=== PATIENT | male | born 1950 | race Caucasian/White ===

== ENCOUNTER 2023-09-22 10:43 | Outpatient (OUT) | payer MEDICARE, OTHER, SELFPAY ==
[2023-09-22 11:49] LABS: Basophils Percent Auto 0.2 % (0.2-2.0); Eosinophils Absolute Auto 0.1 10^3/uL (0.0-0.7); Eosinophils Percent Auto 1.1 % (0.9-7.0); Hematocrit 33.5 % (42.0-54.0); Hemoglobin 11.2 g/dL (14.0-18.0); Immature Granulocytes Abs Auto 0.02 10^3/uL (0.00-0.03); Immature Granulocytes Pct Auto 0.4 % (0.0-0.5); Lymphocytes Absolute Auto 1.5 10^3/uL (1.2-3.8); Lymphocytes Percent Auto 32.1 % (20.5-60.0); Mean Corpuscular HGB Conc 33.4 g/dL (29.9-35.2); Mean Corpuscular Hemoglobin 36.1 pg (25.9-34.0); Mean Corpuscular Volume 108.1 fL (80.0-94.0); Mean Platelet Volume 9.8 fL (9.5-13.5); Monocytes Absolute Auto 0.3 10^3/uL (0.3-0.8); Monocytes Percent Auto 6.3 % (1.7-12.0); Neutrophils Absolute Auto 2.8 10^3/uL (1.4-6.5); Neutrophils Percent Auto 59.9 % (43.0-75.0); Platelet Count 184 10^3/uL (150-450); Red Cell Distribution Width 14.8 % (11.0-15.0); White Blood Count 4.6 10^3/uL (4.0-11.0)
[2023-09-22 12:12] LABS: INR 1.13; Partial Thromboplastin Time 27.6 sec (22.3-36.2); Prothrombin Time 11.9 sec (9.0-11.6)
[2023-09-22 12:31] LABS: Anion Gap 9.6; BUN Creatinine Ratio 17.6; Calcium 8.8 mg/dL (8.5-10.1); Carbon Dioxide 28.8 mmol/L (21.0-32.0); Chloride 108 mmol/L (98-107); Estimated GFR (African America >60 (>=60); Estimated GFR (Non-African Ame >60 (>=60); Glucose 103 mg/dL (74-106); Potassium 4.4 mmol/L (3.5-5.1); Sodium 142 mmol/L (136-145)
== END 2023-09-22 10:44 | disposition home or self-care (01) ==
PROVIDERS: Visit Provider Otolaryngology
DX: Z01.812 Encounter for preprocedural laboratory examination (principal); H69.91 Unspecified Eustachian tube disorder, right ear
CPT/HCPCS: 80048; 85025; 85610; 85730

== ENCOUNTER 2023-09-29 06:43 | Day surgery (SDC) | payer MEDICARE, OTHER, SELFPAY ==
[2023-09-22 11:39] VITALS: BP 119/61; PULSE 66; RESP 16; TEMP 36.2; O2SAT 97; BMI 25.1
[2023-09-29] VITALS (9 sets, daily range): BP systolic 136–151; BP diastolic 69–84; PULSE 71–89; RESP 12–22; TEMP 36.2–36.4; O2SAT 96–98; BMI 25.0
--- NOTE | 2023-09-29 | OP_ITS ---
OPERATION DATE: 09/29/2023 PRIMARY CARE PHYSICIAN: Dr. De León SURGEON: Linette Chiang M.D. PREOPERATIVE DIAGNOSIS: Right eustachian tube dysfunction. POSTOPERATIVE DIAGNOSIS: Right eustachian tube dysfunction. PROCEDURE: Right myringotomy and tube. ANESTHESIA: General LMA. COMPLICATIONS: None. FINDINGS: Right serous effusion. INDICATIONS: This 73-year-old man presented with right otitis media with effusion, unresponsive to aggressive medical management. PROCEDURE: Patient identified in the holding area and taken back to the OR where he was placed in the supine position. After induction of general anesthesia by LMA, the right ear was approached with the otomicroscope. Cerumen cleaned from the canal using a cerumen curette, and an anterior radial myringotomy was performed. The serous effusion was suctioned from the ear, and a modified Valeriano?s T-tube was folded, inserted through the myringotomy and opened in the middle using microdissection. Patient tolerated procedure well and he was awakened and taken to the recovery room in good condition. LANETTE
--- OUTSIDE RECORDS SUMMARY | 2023-09-29 06:46 | XMS_ITS | CCD ---
Author Name Unknown Address [address] [place] [address] Organization [facility] Care Team Providers Care Securities Attorney Name Role Phone Vin Velasquez Primary Care Provider [phone] Artis Cox Primary Care Provider [phone] Ron CLOTH PRINTER HELPER - TOOL LAPPER HAND, Vin Erick Primary Care Pr ovider Artis Cox MD Primary Care Provider [phone] Ron CLOTH PRINTER HELPER - TOOL LAPPER HAND, Vin Erick Primary Care Pr ovider Ron CLOTH PRINTER HELPER - TOOL LAPPER HAND, Vin Erick Primary Care Pr ovider Ron CLOTH PRINTER HELPER - TOOL LAPPER HAND, Vin Erick Primary Care Pr ovider NARENDRA TATUM Referring Unavailable VELASQUEZ, VIN ERICK Primary Care Unavailabl e NARENDRA TATUM Referring Unavailable VELASQUEZ, VIN ERICK Primary Care Unavailabl e VELASQUEZ, VIN ERICK Primary Care Unavailabl e NARENDRA TATUM Referring Unavailable Paul Cunha MD Primary Care Provider [phone] BONNIE BONILLA Attending Unavailable PAUL CUNHA Referring Unavailable VELASQUEZ VIN ERICK Referring Unavailabl e VELASQUEZ, VIN ERICK Primary Care Unavailabl e FRITZ BUSCH Referring Unavailable VELASQUEZ, VIN ERICK Primary Care Unavailabl e VELASQUEZ, VIN ERICK Primary Care Unavailabl e NARENDRA TATUM Referring Unavailable FRITZ BUSCH Referring Unavailable VELASQUEZ, VIN ERICK Primary Care Unavailabl e TAIWO GUAMAN Referring Unavailable KATHARINE REID Admitting Unavailable KATHARINE REID Attending Unavailable VIN VELASQUEZ Primary Care Unavailabl e VIN VELASQUEZ Primary Care Unavailabl e NARENDRA TATUM Referring Unavailable VIN VELASQUEZ Primary Care Unavailabl e NARENDRA TATUM Referring Unavailable NARENDRA TATUM Referring Unavailable VIN VELASQUEZ Primary Care Unavailabl e RC, NARENDRA Referring Unavailable VIN VELASQUEZ Primary Care Unavailabl e Medications Current Medications Medication Drug Class(es) Dates Sig (Normalized) Sig (Original) amLODIPine 2.5 mg oral tablet (15 sources) Dihydropyridine Calcium Channel Brandi Start: 04-13-2023 take 1 tablet by mouth once daily amLODIPine (NORVASC) 2.5 MG tablet Take 1 tablet by mouth daily 90 tablet 1 04/13/2023 Active Start: 08-18-2022 take 1 tablet by tayo th once daily amLODIPine (NORVASC) 5 MG tablet take 1 tablet by mouth once daily 90 tablet 1 08/18/2022 Active Start: 02-21-2022 take 1 tablet by tayo th once daily amLODIPine (NORVASC) 5 MG tablet take 1 tablet by mouth once daily 90 tablet 1 02/21/2022 Active Start: 08-26-2021 take 1 tablet by tayo th once daily amLODIPine (NORVASC) 5 MG tablet take 1 tablet by mouth once daily 90 tablet 1 08/26/2021 Active Start: 03-04-2021 take 1 tablet by tayo th once daily amLODIPine (NORVASC) 5 MG tablet take 1 tablet by mouth once daily 90 tablet 1 03/04/2021 Active Start: 01-07-2021 take 1 tablet by tayo th once daily amLODIPine (NORVASC) 5 MG tablet take 1 tablet by mouth once daily 90 tablet 0 01/07/2021 Active Start: 07-09-2020 take 1 tablet by tayo th once daily amLODIPine (NORVASC) 5 MG tablet take 1 tablet by mouth once daily 90 tablet 0 07/09/2020 Active Start: 11-11-2019 take 1 tablet by tayo th once daily amLODIPine (NORVASC) 5 MG tablet Take 1 tablet by mouth daily 30 tablet 3 11/11/2019 Active apixaban 5 mg oral tablet (16 sources) Factor Xa Inhibitor Start: 08-17-2023 take 1 tablet by mouth twice daily ELIQUIS 5 MG TABS tablet Indications: Paroxysmal atrial fibrillation (HCC) take 1 tablet by mouth twice a day 180 tablet 3 08/17/2023 Active Start: 08-25-2022 take 1 tablet by tayo th twice daily ELIQUIS 5 MG TABS tablet Indications: Paroxysmal atrial fibrillation (HCC) take 1 tablet by mouth twice a day 180 tablet 3 08/25/2022 Active Start: 08-26-2021 take 1 tablet by tayo th twice daily ELIQUIS 5 MG TABS tablet Indications: Paroxysmal atrial fibrillation (HCC) take 1 tablet by mouth twice a day 180 tablet 3 08/26/2021 Active Start: 08-30-2020 take 1 tablet by tayo th twice daily ELIQUIS 5 MG TABS tablet Indications: Paroxysmal atrial fibrillation (HCC) take 1 tablet by mouth twice a day 180 tablet 3 08/30/2020 Active Start: 09-16-2019 take 1 tablet by tayo th twice daily apixaban (ELIQUIS) 5 MG TABS tablet Indications: Paroxysmal atrial fibrillation (HCC) Take 1 tablet by mouth 2 times daily 180 tablet 3 09/16/2019 Active Start: 04-12-2019 take 1 tablet by tayo th twice daily ELIQUIS 5 MG TABS tablet TAKE 1 TABLET BY MOUTH TWO TIMES DAILY 180 tablet 3 04/12/2019 Active b complex vitamins capsule (2 sources) take 1 capsule by mouth once daily b complex vitamins capsule Take 1 capsule by mouth daily 0 Active dronedarone 400 mg oral tablet (16 sources) Antiarrhythmic Start: 08-18-2023 take 1 tablet by mouth once daily in the morning, then take 1 tablet by mouth once daily in the evening MULTAQ 400 MG TABS Indications: Paroxysmal atrial fibrillation (HCC) take 1 tablet by mouth every morning with breakfast then take 1 tablet by mouth every evening with DINNER 180 tablet 3 08/18/2023 Active Start: 08-27-2022 take 1 tablet by tayo th twice daily in the morning MULTAQ 400 MG TABS Indications: Paroxysmal atrial fibrillation (HCC) take 1 tablet by mouth twice a day EVERY MORNING WITH BREAKFAST and EVERY EVENING WITH DINNER 180 tablet 3 08/27/2022 Active Start: 09-02-2021 take 1 tablet by tayo th twice daily in the morning MULTAQ 400 MG TABS Indications: Paroxysmal atrial fibrillation (HCC) take 1 tablet by mouth twice a day EVERY MORNING WITH BREAKFAST and EVERY EVENING WITH DINNER 180 tablet 3 09/02/2021 Active Start: 09-05-2020 take 1 tablet by tayo th twice daily in the morning MULTAQ 400 MG TABS Indications: Paroxysmal atrial fibrillation (HCC) take 1 tablet by mouth twice a day EVERY MORNING WITH BREAKFAST and EVERY EVENING WITH DINNER 180 tablet 3 09/05/2020 Active Start: 09-16-2019 take 1 tablet by tayo th twice daily at mealtime dronedarone hcl (MULTAQ) 400 MG TABS Indications: Paroxysmal atrial fibrillation (HCC) Take 1 tablet by mouth 2 times daily (with meals) 180 tablet 3 09/16/2019 Active Start: 04-12-2019 take 1 tablet by tayo th twice daily at mealtime MULTAQ 400 MG TABS TAKE 1 TABLET BY MOUTH TWO TIMES DAILY WITH MEALS 180 tablet 3 04/12/2019 Active ferrous fumarate-vitamin c (MARTIN-SEQUELS) 65-25 MG TBCR CR tablet (2 sources) take 1 tablet by mouth once daily at breakfast ferrous fumarate-vitamin c (MARTIN-SEQUELS) 65-25 MG TBCR CR tablet Take 1 tablet by mouth daily (with breakfast) OTC supplement per patient report 0 Active ferrous sulfate 325 mg oral tablet (3 sources) take 1 tablet by mouth once daily at breakfast ferrous sulfate (IRON 325) 325 (65 Fe) MG tablet Take 1 tablet by mouth daily (with breakfast) 0 Active hydrOXYzine hydrochloride 25 mg oral tablet (1 source) Antihistamine Start: 2020 End: 2020 take 1 tablet by mouth once daily as needed for anxiety hydrOXYzine (ATARAX) 25 MG tablet Take 1 tablet by mouth nightly as needed for Anxiety 90 tablet 0 08/31/2020 09/30/2020 Active losartan potassium 100 mg oral tablet (14 sources) Angiotensin 2 Receptor Brandi Start: 2018 End: 2027 take 1 tablet by mouth once daily losartan (COZAAR) 100 MG tablet take 1 tablet by mouth once daily 90 tablet 1 04/16/2023 Active predniSONE 5 mg oral tablet (1 source) Start: 2023 End: 2023 take 4 tablets by mouth twice daily predniSONE (DELTASONE) 5 MG tablet Take 4 tablets by mouth 2 times daily 60 tablet 2 08/31/2023 09/30/2023 Active simvastatin 20 mg oral tablet (16 sources) HMG-CoA Reductase Inhibitor Start: 2023 take 1 tablet by mouth once daily in the evening simvastatin (ZOCOR) 20 MG tablet take 1 tablet by mouth every evening 90 tablet 1 08/17/2023 Active Start: 08-25-2022 take 1 tablet by tayo th once daily in the evening simvastatin (ZOCOR) 20 MG tablet take 1 tablet by mouth every evening 90 tablet 1 08/25/2022 Active Start: 02-25-2022 take 1 tablet by tayo th once daily in the evening simvastatin (ZOCOR) 20 MG tablet take 1 tablet by mouth every evening 90 tablet 1 02/25/2022 Active Start: 08-29-2021 take 1 tablet by tayo th once daily in the evening simvastatin (ZOCOR) 20 MG tablet take 1 tablet by mouth every evening 90 tablet 1 08/29/2021 Active Start: 03-04-2021 take 1 tablet by tayo th once daily in the evening simvastatin (ZOCOR) 20 MG tablet TAKE 1 TABLET BY MOUTH DAILY IN THE EVENING 90 tablet 1 03/04/2021 Active Start: 10-22-2020 take 1 tablet by tayo th once daily in the evening simvastatin (ZOCOR) 20 MG tablet TAKE 1 TABLET BY MOUTH DAILY IN THE EVENING 90 tablet 1 10/22/2020 Active Start: 09-16-2019 take 1 tablet by tayo th once daily in the evening simvastatin (ZOCOR) 20 MG tablet TAKE 1 TABLET BY MOUTH DAILY IN THE EVENING 90 tablet 3 09/16/2019 Active Start: 08-04-2018 take 1 tablet by tayo th once daily in the evening simvastatin (ZOCOR) 20 MG tablet TAKE 1 TABLETBY MOUTH DAILY IN THE EVENING 90 tablet 3 08/04/2018 Active tiotropium 0.018 mg inhalation powder (1 source) Anticholinergic Start: 06-19-2022 take 1 capsule by inhalation once daily tiotropium (SPIRIVA HANDIHALER) 18 MCG inhalation capsule Inhale 1 capsule into the lungs daily 90 capsule 1 06/19/2022 Active ubidecarenone 100 mg / vitamin e 5 unt oral capsule (3 sources) take 1 capsule by mouth once daily coenzyme Q10 100 MG CAPS capsule Take 1 capsule by mouth daily 0 Active Completed/Discontinued Medications Medication Drug Class(es) Dates Sig (Normalized) Sig (Original) ALPRAZolam 0.25 mg oral tablet (1 source) Benzodiazepine Start: 08-20-2018 End: 07-07-2019 take 1 tablet by mouth twice daily ALPRAZolam (XANAX) 0.25 MG tablet Indications: Reactive depression take 1 tablet by mouth twice a day. 60 tablet 5 08/20/2018 07/07/2019 Discontinued (Therapy completed) Problems Active Problems Problem Classification Problem Date Documented Date Episodic/Chronic Cancer of prostate (20 sources) Malignant tumor of prostate; Translations: [Malignant neoplasm of prostate] Onset: 5 08-24-2014 Chronic Cardiac dysrhythmias (20 sources) Sinus bradycardia; Translations: [Premature beats] Onset: 5 Resolved: 1 05-19-2016 Chronic Cardiac dysrhythmias (14 sources) Sinus bradycardia; Translations: [Bradycardia, unspecified] 05-19-2016 Episodic Chronic obstructive pulmonary disease and bronchiectasis (3 sources) Chronic obstructive lung disease; Translations: [Chronic obstructive pulmonary disease, unspecified] Onset: 3 09-15-2022 Chronic Coagulation and hemorrhagic disorders (1 source) Hypercoagulability state; Translations: [Other thrombophilia] Onset: 3 05-01-2023 Chronic Deficiency and other anemia (3 sources) Macrocytic anemia; Translations: [Nutritional anemia, unspecified] Onset: 3 Episodic Deficiency and other anemia (2 sources) Anemia, unspecified; Translations: [Anemia, unspecified] Onset: 3 Episodic Diseases of white blood cells (13 sources) Lymphocytosis; Translations: [Lymphocytosis (symptomatic)] Onset: 3 Chronic Disorders of lipid metabolism (20 sources) Hyperlipidemia; Translations: [Dyslipidemia] Onset: 5 Resolved: 0 10-12-2019 Chronic Esophageal disorders (16 sources) Gastroesophageal reflux disease; Translations: [Gastro-esophageal reflux disease without esophagitis] Onset: 5 08-24-2014 Chronic Essential hypertension (20 sources) Benign essential hypertension; Translations: [Essential hypertension] Onset: 5 08-24-2014 Chronic Gastritis and duodenitis (13 sources) Gastritis; Translations: [Unspecified chronic gastritis without bleeding] 03-02-2018 Chronic Gastritis and duodenitis (3 sources) Gastritis; Translations: [Antral gastritis] 03-02-2018 Episodic Genitourinary symptoms and ill-defined conditions (3 sources) Male urinary stress incontinence; Translations: [Stress incontinence (female) (male)] Onset: 3 09-25-2022 Chronic Heart valve disorders (3 sources) Nonrheumatic aortic (valve) insufficiency; Translations: [Nonrheumatic aortic (valve) insufficiency] Onset: 4 Chronic Leukemias (4 sources) Adult T-cell leukemia/lymphoma; 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] Onset: 3 08-31-2023 Chronic Mood disorders (16 sources) Major depression single episode, in partial remission; Translations: [Major depressive disorder, single episode, in partial remission] Onset: 5 10-08-2018 Chronic Non-Hodgkin`s lymphoma (5 sources) Non-Hodgkin's lymphoma (clinical); Translations: [Other specified types of non-Hodgkin lymphoma, unspecified site] Onset: 3 Chronic Other aftercare (3 sources) Other termite control service representative (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) drug therapy; Translations: [Other custodial (current) drug therapy] Onset: 4 Episodic Other ear and sense organ disorders (1 source) Mixed conductive AND sensorineural hearing loss; Translations: [Mixed conductive and sensorineural hearing loss, unilateral, right ear with restricted hearing on the contralateral side] 09-02-2023 Chronic Other hematologic conditions (1 source) Other specified diseases of blood and blood-forming organs; Translations: [Other specified diseases of blood and blood-forming organs] Onset: 4 Chronic Other screening for suspected conditions (not mental disorders or infectious disease) (7 sources) Blood chemistry abnormal; Translations: [Patient encounter status] Onset: 4 Episodic Otitis media and related conditions (1 source) Chronic serous otitis media of right ear; Translations: [Chronic serous otitis media, right ear] 09-02-2023 Chronic Unclassified (1 source) Patient encounter status; Translations: [Encounter for screening for malignant neoplasm of prostate] Unclassified (2 sources) pre admission testing; Translations: [pre admission testing] Onset: Past or Other Problems Problem Classification Problem Date Documented Da te Episodic/Chronic Anxiety disorders (16 sources) Acute stress disorder; Translations: [Acute stress reaction] Onset: 08-24-2014 Resolved: 08-31-2020 08-31-2020 Chronic Deficiency and other anemia (1 source) Microcytic anemia; Translations: [Iron deficiency anemia, unspecified] Onset: 02-16-2023 02-16-2023 Episodic Deficiency and other anemia (2 sources) Nutritional anemia, unspecified; Translations: [Nutritional anemia, unspecified] Onset: 05-18-2023 Episodic Deficiency and other anemia (1 source) Iron deficiency anemia, unspecified; Translations: [Iron deficiency anemia, unspecified] Onset: 02-16-2023 Episodic Malaise and fatigue (1 source) Neoplastic (malignant) related fatigue; Translations: [Neoplastic (malignant) related fatigue] Onset: 05-04-2023 Episodic Nonspecific chest pain (16 sources) Chest pain; Translations: [Chest pain, unspecified] Resolved: 08-31-2020 08-31-2020 Episodic Other gastrointestinal disorders (16 sources) Occult blood in stools; Translations: [Other fecal abnormalities] Onset: 02-17-2018 Resolved: 08-31-2020 08-31-2020 Episodic Other male genital disorders (3 sources) Phimosis; Translations: [Phimosis] Onset: 09-25-2022 09-25-2022 Episodic Other upper respiratory disease (1 source) Bleeding from nose Episodic Results Test Name Value Interpretation Reference Range Facility PSA, [facility] 09-24-2023 Prostatic Spec. Ag <0.03 Normal 0.00-4.00 [facility] Comment on above: Result Comment: The Mac ECLIA assay is used. Results obtained with different assay methods cannot be used interchangeably. Performed By: #### U CHEY, RADHA #### [facility] [address] [place] [address] White [place] Buffer: Tomy Steven MD CBC with Diffon 09-23-2023 Abs. Basophil <0.03 Normal 0.00-0.[address] [facility] Comment on above: Performed By: #### U AXKAYLAICAO #### [facility] [address] [place] [address] [place] [address] [place] Buffer: Tomy Steven MD Abs.Imm.Granulocyte <0.03 Normal 0.00-0.30 [facility] Comment on above: Performed By: #### U AXKAYLAICAO #### [address] [place] [address] [place] Buffer: Tomy Steven MD Abs.Neutrophil (Seg) 1.80 k/uL Normal 1.50-8.10 [facility] Comment on above: Performed By: #### U AXHEBERTO #### [address] [place] [id number] [place] Buffer: Tomy Steven MD Basophils/100 WBC (Bld) 0 % Normal 0-2 [facility] Comment on above: Performed By: #### U HEBERT GUERRIERO #### [address] [place] [address] [place] Buffer: Tomy Steven MD Eosinophils (Bld) [#/Vol] 0.05 10*3/uL Normal 0.00-0.44 [facility] Comment on above: Performed By: #### U HEBERT GUERRIERO #### [address] [place] [address] [place] Buffer: Tomy Steven MD Eosinophils/100 WBC (Bld) 1 % Normal 1-4 [facility] Comment on above: Performed By: #### U AXKAYLAICAO #### [address] [place] [id number] [place] Buffer: Tomy Steven MD Erythrocyte distribution width (RBC) [Ratio] 14.6 % High 11.8-14.4 [facility] Comment on above: Performed By: #### U AX, UMICAO #### [facility] [address] [place], [place] [id number] [place] Buffer: Tomy Steven MD Hematocrit (Bld) [Volume fraction] 34.1 % Low 40.7-50.3 [facility] Comment on above: Performed By: #### U AX, UMICAO #### [facility] [address] [place], [facility] [place] Buffer: Tomy Steven MD Hemoglobin (Bld) [Mass/Vol] 11.5 g/dL Low 13.0-17.0 [facility] Comment on above: Performed By: #### U AX, UMICAO #### [address] [place], [place] [id number] [place] Buffer: Tomy Steven MD Immature granulocytes/100 WBC (Bld) 0 % Normal 0 [facility] Comment on above: Performed By: #### U AX, UMICAO #### [address] [place], [place] [id number] [place] Buffer: Tomy Steven MD Lymphocytes (Bld) [#/Vol] 1.54 10*3/uL Normal 1.10-3.70 [facility] Comment on above: Performed By: #### U AX, UMICAO #### [address] [place], [facility] [place] Buffer: Tomy Steven MD Lymphocytes/100 WBC (Bld) 42 % Normal 24-43 [facility] Comment on above: Performed By: #### U AX, UMICAO #### [facility] [address] [place], [place] [id number] [place] Buffer: Tomy Steven MD MCH (RBC) [Entitic mass] 36.4 pg High 25.2-33.5 [facility] Comment on above: Performed By: #### U AX, UMICAO #### [facility] [address] [place], [place] [id number] [place] Buffer: Tomy Steven MD MCHC (RBC) [Mass/Vol] 33.7 g/dL Normal 28.4-34.8 [facility] Comment on above: Performed By: #### U AX, UMICAO #### [facility] [address] [place], [facility] [place] Buffer: Tomy Steven MD MCV (RBC) [Entitic vol] 107.9 fL High 82.6-102.9 [facility] Comment on above: Performed By: #### U AX, UMICAO #### [address] [place], [facility] [place] Buffer: Tomy Steven MD Monocytes (Bld) [#/Vol] 0.26 10*3/uL Normal 0.10-1.20 [facility] Comment on above: Performed By: #### U AX, UMICAO #### [address] [place], [facility] [place] Buffer: Tomy Steven MD Monocytes/100 WBC (Bld) 7 % Normal 3-12 [facility] Comment on above: Performed By: #### U AX, UMICAO #### [address] [place], [facility] [place] Buffer: Tomy Steven MD Neutrophil (Seg) 50 % Normal 36-65 [facility] Comment on above: Performed By: #### U AX, UMICAO #### [facility] [address] [place], [facility] [place] Buffer: Tomy Steven MD NRBC Automated 0.0 per 100 WBC Normal 0.0 [facility] Comment on above: Performed By: #### U AX, UMICAO #### [facility] [address] [place], [facility] [place] Buffer: Tomy Steven MD Platelet mean volume (Bld) [Entitic vol] 9.7 fL Normal 8.1-13.5 [facility] Comment on above: Performed By: #### U AX, UMICAO #### [facility] [address] [place] [address] [place] Buffer: Tomy Steven MD Platelets (Bld) [#/Vol] 197 10*3/uL Normal 138-453 [facility] Comment on above: Performed By: #### U AX, UMICAO #### [facility] [address] [place] [address] [place] Kid Buffer: Tomy Steven MD RBC (Bld) [#/Vol] 3.16 10*6/uL Low 4.21-5.77 [facility] Comment on above: Performed By: #### U AX, UMICAO #### [facility] [address] [place], [place] [id number] [place] Buffer: Tomy Steven MD WBC (Bld) [#/Vol] 3.7 10*3/uL Normal 3.5-11.3 [facility] Comment on above: Performed By: #### U AX, UMICAO #### [address] [place], [place] [id number] [place] Buffer: Tomy Steven MD Comp Metabolic Profon 2023 Albumin [Mass/Vol] 3.9 g/dL Normal 3.5-5.2 [facility] Comment on above: Performed By: #### U AX, UMICAO #### [facility] [address] [place] [address] [place] Buffer: Tomy Steven MD Albumin/Glob Ratio 1.6 Normal 1.0-2.5 [facility] Comment on above: Performed By: #### U AX, UMICAO #### [facility] [address] [place], [place] [id number] [place] Buffer: Tomy Steven MD Alkaline Phos 63 U/L Normal 40-[address] [facility] Comment on above: Performed By: #### U AX, UMICAO #### [facility] [address] [place], [place] [id number] [place] Buffer: Tomy Steven MD ALT [Catalytic activity/Vol] 61 U/L High 5-41 [facility] Comment on above: Performed By: #### U AX, UMICAO #### [facility] [address] [place], [place] [id number] [place] Buffer: Tomy Steven MD Anion gap [Moles/Vol] 8 mmol/L Low 9-17 [facility] Comment on above: Performed By: #### U AX, UMICAO #### [facility] [address] [place], [place] [id number] [place] Buffer: Tomy Steven MD AST [Catalytic activity/Vol] 31 U/L Normal <40 [facility] Comment on above: Performed By: #### U AXKAYLAICAO #### [facility] [address] [place], [place] [id number] [place] Buffer: Tomy Steven MD Bilirubin [Mass/Vol] 0.7 mg/dL Normal 0.3-1.2 [facility] Comment on above: Performed By: #### U AX, UMICAO #### [facility] [address] [place], [place] [id number] [place] Buffer: Tomy Steven MD BUN/CRE Ratio 19 Normal 9-[address] [facility] Comment on above: Performed By: #### U AX, UMICAO #### [facility] [address] [place], [place] [id number] [place] Kid Buffer: Tomy Steven MD Calcium [Mass/Vol] 9.4 mg/dL Normal 8.6-10.4 [facility] Comment on above: Performed By: #### U AX, UMICAO #### [facility] [address] [place], [place] [id number] [place] Buffer: Tomy Steven MD Chloride [Moles/Vol] 106 mmol/L Normal 98-107 [facility] Comment on above: Performed By: #### U AX, UMICAO #### [facility] [address] [place], [place] [id number] [place] Buffer: Tomy Steven MD CO2 [Moles/Vol] 27 mmol/L Normal 20-31 [facility] Comment on above: Performed By: #### U AX, UMICAO #### [facility] [address] [place], [place] [id number] [place] Buffer: Tomy Steven MD Creatinine [Mass/Vol] 0.7 mg/dL Normal 0.7-1.2 [facility] Comment on above: Performed By: #### U AX, UMICAO #### [facility] [address] [place], [place] [id number] [place] Buffer: Tomy Steven MD GFR/1.73 sq M.predicted among non-blacks MDRD (S/P/Bld) [Vol rate/Area] mL/min/{1.73_m2} Normal >60 [facility] Comment on above: Result Comment: These results are not intended for use in patients <18 years of age. eGFR results are calculated without a race factor using the 2020 CKD-EPI equation. Careful clinical correlation is recommended, particularly when comparing to results calculated using previous equations. The CKD-EPI equation is less accurate in patients with extremes of muscle mass, extra-renal metabolism of creatine, excessive creatine ingestion, or following therapy that affects renal tubular secretion. Performed By: #### U AX, UMICAO #### [facility] [address] [place] [address] [place] Buffer: Tomy Steven MD Glucose [Mass/Vol] 135 mg/dL High 70-99 [facility] Comment on above: Performed By: #### U AX, UMICAO #### [facility] [address] [place] [address] [place], [place] [id number] [place] Buffer: Tomy Steven MD Potassium [Moles/Vol] 4.1 mmol/L Normal 3.7-5.3 [facility] Comment on above: Performed By: #### U AX, UMICAO #### [facility] [address] [place] [address] Dr[place], [place] [id number] [place] Buffer: Tomy Steven MD Protein [Mass/Vol] 6.4 g/dL Normal 6.4-8.3 [facility] Comment on above: Performed By: #### U AX, UMICAO #### [address] [place], [place] [id number] [place] Buffer: Tomy Steven MD Sodium [Moles/Vol] 141 mmol/L Normal 135-144 [facility] Comment on above: Performed By: #### U AX, UMICAO #### [facility] [address] [place] [address] Dr[place], [place] [id number] [place] Buffer: Tomy Steven MD Urea nitrogen [Mass/Vol] 13 mg/dL Normal 8-23 [facility] Comment on above: Performed By: #### U AX, UMICAO #### [address] [place], [place] [id number] [place] Buffer: Tomy Steven MD CBC with Diffon 09-11-2023 Abs. Basophil <0.03 Normal 0.00-0.[address] [facility] Comment on above: Performed By: #### U AX, UMICAO #### [facility] [address] [place] [address] [place] [address] [place] Buffer: Tomy Steven MD Abs. Eosinophil <0.03 Normal 0.00-0.44 [facility] Comment on above: Performed By: #### U AX, UMICAO #### [facility] [address] [place] [address] [place], [place] [id number] [place] Kid Buffer: Tomy Steven MD Abs.Imm.Granulocyte 0.03 k/uL Normal 0.00-0.30 [facility] Comment on above: Performed By: #### U AX, UMICAO #### [address] [place], [place] [id number] [place] Kid Buffer: Tomy Steven MD Abs.Neutrophil (Seg) 2.90 k/uL Normal 1.50-8.10 [facility] Comment on above: Performed By: #### U AX, UMICAO #### [address] [place] [id number] [place] Kid Buffer: Tomy Steven MD Basophils/100 WBC (Bld) 0 % Normal 0-2 [facility] Comment on above: Performed By: #### U AX, KAYLAICAO #### [address] [place], [facility]83 [place] Kid Buffer: Tomy Steven MD Eosinophils/100 WBC (Bld) 0 % Low 1-4 [facility] Comment on above: Performed By: #### U AX, KAYLAICAO #### [address] [place], [facility]83 [place] Kid Buffer: Tomy Steven MD Erythrocyte distribution width (RBC) [Ratio] 15.6 % High 11.8-14.4 [facility] Comment on above: Performed By: #### U AX, UMICAO #### [address] [place], [place] [id number] [place] Kid Buffer: Tomy Steven MD Hematocrit (Bld) [Volume fraction] 37.4 % Low 40.7-50.3 [facility] Comment on above: Performed By: #### U AX, UMICAO #### [address] [place], [facility]83 [place] Kid Buffer: Tomy Steven MD Hemoglobin (Bld) [Mass/Vol] 12.5 g/dL Low 13.0-17.0 [facility] Comment on above: Performed By: #### U AX, HEBERTO #### [facility] [address] [place], [place] [id number] [place] Buffer: Tomy Steven MD Immature granulocytes/100 WBC (Bld) 1 % High 0 [facility] Comment on above: Performed By: #### U AX, KAYLAICAO #### [facility] [address] [place] [address] [place] Kid Buffer: Tomy Steven MD Lymphocytes (Bld) [#/Vol] 1.54 10*3/uL Normal 1.10-3.70 [facility] Comment on above: Performed By: #### U AXHEBERTO #### [address] [place], [place] 3000083 [place] Kid Buffer: Tomy Steven MD Lymphocytes/100 WBC (Bld) 32 % Normal 24-43 [facility] Comment on above: Performed By: #### U RADHA GUERRIER #### [address] [place], [place] [phone] [place] Kid Buffer: Tomy Steven MD MCH (RBC) [Entitic mass] 36.2 pg High 25.2-33.5 [facility] Comment on above: Performed By: #### U AXHEBERTO #### [address] [place], [place] [id number] [place] Kid Buffer: Tomy Steven MD MCHC (RBC) [Mass/Vol] 33.4 g/dL Normal 28.4-34.8 [facility] Comment on above: Performed By: #### U AX, KAYLAICAO #### [address] [place] [address] White Kid Buffer: Tomy Steven MD MCV (RBC) [Entitic vol] 108.4 fL High 82.6-102.9 [facility] Comment on above: Performed By: #### U AX, UMICAO #### [facility] [address] [place], [place] [id number] [place] Kid Buffer: Tomy Steven MD Monocytes (Bld) [#/Vol] 0.40 10*3/uL Normal 0.10-1.20 [facility] Comment on above: Performed By: #### U AX, UMICAO #### [facility] [address] [place], [place] 0329583 White Kid Buffer: Tomy Steven MD Monocytes/100 WBC (Bld) 8 % Normal 3-12 [facility] Comment on above: Performed By: #### U AX, KAYLAICAO #### [address] [place], [facility]83 White Kid Buffer: Tomy Steven MD Neutrophil (Seg) 59 % Normal 36-65 [facility] Comment on above: Performed By: #### U AX, KAYLAICAO #### [address] [place], [place] [address] White Kid Buffer: Tomy Steven MD NRBC Automated 0.0 per 100 WBC Normal 0.0 [facility] Comment on above: Performed By: #### U AX, KAYLAICAO #### [address] [place], [facility]83 [place] Kid Buffer: Tomy Steven MD Platelet mean volume (Bld) [Entitic vol] 10.3 fL Normal 8.1-13.5 [facility] Comment on above: Performed By: #### U AX, UMICAO #### [address] [place] [address] [place] Kid Buffer: Tomy Steven MD Platelets (Bld) [#/Vol] 251 10*3/uL Normal 138-453 [facility] Comment on above: Performed By: #### U AX, UMICAO #### [facility] [address] [place], [place] [id number] [place] Kid Buffer: Tomy Steven MD RBC (Bld) [#/Vol] 3.45 10*6/uL Low 4.21-5.77 [facility] Comment on above: Performed By: #### U AX, UMICAO #### [facility] [address] [place], [place] [id number] [place] Kid Buffer: Tomy Steven MD WBC (Bld) [#/Vol] 4.9 10*3/uL Normal 3.5-11.3 [facility] Comment on above: Performed By: #### U AX, UMICAO #### [facility] [address] [place], [place] [id number] [place] Kid Buffer: Tomy Steven MD Comp Metabolic Profon 2023 Albumin [Mass/Vol] 4.2 g/dL Normal 3.5-5.2 [facility] Comment on above: Performed By: #### U AXKAYLAICAO #### [facility] [address] [place], [place] [id number] [place] Kid Buffer: Tomy Steven MD Albumin/Glob Ratio 1.8 Normal 1.0-2.5 [facility] Comment on above: Performed By: #### U AX UMICAO #### [facility] [address] [place], [place] [phone] [place] Kid Buffer: Tomy Steven MD Alkaline Phos 56 U/L Normal 40-[address] [facility] Comment on above: Performed By: #### U AX, UMICAO #### [facility] [address] [place], [place] 7592983 [place] Kid Buffer: Tomy Steven MD ALT [Catalytic activity/Vol] 47 U/L High 5-41 [facility] Comment on above: Performed By: #### U AX, UMICAO #### [facility] [address] [place], [place] 0739983 [place] Buffer: Tomy Steven MD Anion gap [Moles/Vol] 12 mmol/L Normal 9-17 [facility] Comment on above: Performed By: #### U AX, UMICAO #### [facility] [address] [place], [place] 2462383 [place] Kid Buffer: Tomy Steven MD AST [Catalytic activity/Vol] 26 U/L Normal <40 [facility] Comment on above: Performed By: #### U AX, UMICAO #### [facility] [address] [place], [place] 6563483 [place] Kid Buffer: Tomy Steven MD Bilirubin [Mass/Vol] 0.9 mg/dL Normal 0.3-1.2 [facility] Comment on above: Performed By: #### U AX, UMICAO #### [facility] [address] [place], [place] 1790683 [place] Kid Buffer: Tomy Steven MD BUN/CRE Ratio 24 High 9-[address] [facility] Comment on above: Performed By: #### U AX, UMICAO #### [facility] [address] [place], [place] [id number] [place] Kid Buffer: Tomy Steven MD Calcium [Mass/Vol] 9.2 mg/dL Normal 8.6-10.4 [facility] Comment on above: Performed By: #### U AX, UMICAO #### [facility] [address] [place], [place] [phone] [place] Kid Buffer: Tomy Steven MD Chloride [Moles/Vol] 104 mmol/L Normal 98-107 [facility] Comment on above: Performed By: #### U AX, UMICAO #### [facility] [address] [place], [place] [phone] [place] Kid Buffer: Tomy Steven MD CO2 [Moles/Vol] 24 mmol/L Normal 20-31 [facility] Comment on above: Performed By: #### U AX, UMICAO #### [facility] [address] [place] [address] [place] Kid Buffer: Tomy Steven MD Creatinine [Mass/Vol] 0.7 mg/dL Normal 0.7-1.2 [facility] Comment on above: Performed By: #### U AX, UMICAO #### [facility] [address] [place] [address] [place] Kid Buffer: Tomy Steven MD GFR/1.73 sq M.predicted among non-blacks MDRD (S/P/Bld) [Vol rate/Area] mL/min/{1.73_m2} Normal >60 [facility] Comment on above: Result Comment: These results are not intended for use in patients <18 years of age. eGFR results are calculated without a race factor using the 2020 CKD-EPI equation. Careful clinical correlation is recommended, particularly when comparing to results calculated using previous equations. The CKD-EPI equation is less accurate in patients with extremes of muscle mass, extra-renal metabolism of creatine, excessive creatine ingestion, or following therapy that affects renal tubular secretion. Performed By: #### U AX, UMICAO #### [facility] [address] [place] [address] [place] Kid Buffer: Tomy Steven MD Glucose [Mass/Vol] 208 mg/dL High 70-99 [facility] Comment on above: Performed By: #### U AX, UMICAO #### [facility] [address] [place] [address] [place] Kid Buffer: Tomy Steven MD Potassium [Moles/Vol] 3.9 mmol/L Normal 3.7-5.3 [facility] Comment on above: Performed By: #### U AX, UMICAO #### [facility] [address] [place] [address] [place] Kid Buffer: Tomy Steven MD Protein [Mass/Vol] 6.5 g/dL Normal 6.4-8.3 [facility] Comment on above: Performed By: #### U AX, KAYLAICAO #### [facility] [address] [place] [address] [place] Kid Buffer: Tomy Steven MD Sodium [Moles/Vol] 140 mmol/L Normal 135-144 [facility] Comment on above: Performed By: #### U AX, KAYLAICAO #### [facility] [address] [place] [address] [place] Kid Buffer: Tomy Steven MD Urea nitrogen [Mass/Vol] 17 mg/dL Normal 8-23 [facility] Comment on above: Performed By: #### U AX, KAYLAICAO #### [facility] [address] [place] [address] [place] Kid Buffer: Tomy Steven MD Auditory function testson Right Ear: Mild conductive hearing loss at 1K Hz. Moderate to profound mixed hearing loss above 2K Hz Left Ear: Mild sloping to severe sensorineural hearing loss above 3K Hz [facility] Differential[facility] 08-31-2023 Basophils (Bld) [#/Vol] 0.00 10*3/uL [facility] Basophils/100 WBC (Bld) 0 % 0 - 2 % [facility] Eosinophils (Bld) [#/Vol] 0.12 10*3/uL [facility] Eosinophils/100 WBC (Bld) 3 % 1 - 4 % [facility] Erythrocyte distribution width (RBC) [Ratio] 15.4 % High 11.8 - 14.4 % [facility] Hematocrit (Bld) [Volume fraction] 33.3 % Low 40.7 - 50.3 % [facility] Hemoglobin (Bld) [Mass/Vol] 11.2 g/dL Low 13.0 - 17.0 g/dL [facility] Immature granulocytes (Bld) [#/Vol] 0.00 10*3/uL [facility] Immature granulocytes/100 WBC (Bld) 0 % [address] [facility] Interpretation and review of laboratory results Abnormal [facility] Lymphocytes/100 WBC (Bld) 76 % High 24 - 43 % [facility] Lymphocytes/100 WBC (Bld) 3.04 % [facility] MCH (RBC) [Entitic mass] 36.5 pg High 25.2 - 33.[address] [facility] MCHC (RBC) [Mass/Vol] 33.6 g/dL 28.4 - 34.8 g/dL [facility] MCV (RBC) [Entitic vol] 108.5 fL High 82.6 - 102.[address] [facility] Monocytes/100 WBC (Bld) 8 % 3 - 12 % [facility] Monocytes/100 WBC (Bld) 0.32 % [facility] Morphology Porfirio (Bld) [Interp] Normal [facility] Neutrophils/100 WBC (Bld) 13 % Low 36 - 65 % [facility] Nucleated RBC/100 WBC (Bld) [Ratio] 0.0 % 0.0 per [address] [facility] Platelet mean volume (Bld) [Entitic vol] 10.1 fL 8.1 - 13.[address] [facility] Platelets (Bld) [#/Vol] 198 10*3/uL [facility] RBC (Bld) [#/Vol] 3.07 10*6/uL Low 4.21 - 5.7 7 m/uL [facility] Segmented neutrophils/100 WBC (Bld) 0.52 % Low [facility] WBC other (Bld) [#/Vol] 4.0 [facility] CBC with Diffon 08-31-2023 Abs. Basophil 0.00 k/uL Normal 0.0-0.[address] [facility] Comment on above: Performed By: #### C P, CDP #### [facility] [address] [place] [address] [place] Buffer: Tomy Steven MD Abs.Imm.Granulocyte 0.00 k/uL Normal 0.00-0.30 [facility] Comment on above: Performed By: #### C P, CDP #### [address] [place], [place] [address] [place] Kid Buffer: Tomy Steven MD Abs.Neutrophil (Seg) 0.52 k/uL Low 1.50-8.10 [facility] Comment on above: Performed By: #### C P, CDP #### [address] [place], [facility]83 [place] Kid Buffer: Tomy Steven MD Basophils/100 WBC (Bld) 0 % Normal 0-2 [facility] Comment on above: Performed By: #### C P, CDP #### [address] [place] [address] [place] Kid Buffer: Tomy Steven MD Eosinophils (Bld) [#/Vol] 0.12 10*3/uL Normal 0.00-0.44 [facility] Comment on above: Performed By: #### C P, CDP #### [address] [place], [place] [address] [place] Kid Buffer: Tomy Steven MD Eosinophils/100 WBC (Bld) 3 % Normal 1-4 [facility] Comment on above: Performed By: #### C P, CDP #### [address] [place], [place] [address] [place] Kid Buffer: Tomy Steven MD Immature granulocytes/100 WBC (Bld) 0 % Normal 0 [facility] Comment on above: Performed By: #### C P, CDP #### [address] [place], [facility]83 [place] Kid Buffer: Tomy Steven MD Lymphocytes (Bld) [#/Vol] 3.04 10*3/uL Normal 1.10-3.70 [facility] Comment on above: Performed By: #### C P, CDP #### [facility] [address] [place], [place] [id number] [place] Buffer: Tomy Steven MD Lymphocytes/100 WBC (Bld) 76 % High 24-43 [facility] Comment on above: Performed By: #### C P, CDP #### [facility] [address] [place], [place] [id number] [place] Kid Buffer: Tomy Steven MD Monocytes (Bld) [#/Vol] 0.32 10*3/uL Normal 0.10-1.20 [facility] Comment on above: Performed By: #### C P, CDP #### [address] [place], [place] [id number] [place] Kid Buffer: Tomy Steven MD Monocytes/100 WBC (Bld) 8 % Normal 3-12 [facility] Comment on above: Performed By: #### C P, CDP #### [address] [place], [place] [id number] [place] Kid Buffer: Tomy Steven MD Morphology Porfirio (Bld) [Interp] Normal Normal [facility] Comment on above: Performed By: #### C P, CDP #### [address] [place], [place] [id number] [place] Kid Buffer: Tomy Steven MD Neutrophil (Seg) 13 % Low 36-65 [facility] Comment on above: Performed By: #### C P, CDP #### [facility] [address] [place], [place] [id number] [place] Kid Buffer: Tomy Steven MD Erythrocyte distribution width (RBC) [Ratio] 15.4 % High 11.8-14.4 [facility] Comment on above: Performed By: #### C P, CDP #### [facility] [address] [place], [place] [address]84[address]3 [place] Kid Buffer: Tomy Steven MD Hematocrit (Bld) [Volume fraction] 33.3 % Low 40.7-50.3 [facility] Comment on above: Performed By: #### C P, CDP #### [address] [place] [address] [place] Kid Buffer: Tomy Steven MD Hemoglobin (Bld) [Mass/Vol] 11.2 g/dL Low 13.0-17.0 [facility] Comment on above: Performed By: #### C P, CDP #### [address] [place] [address] [place] Kid Buffer: Tomy Steven MD MCH (RBC) [Entitic mass] 36.5 pg High 25.2-33.5 [facility] Comment on above: Performed By: #### C P, CDP #### [address] [place] [address] [place] Kid Buffer: Tomy Steven MD MCHC (RBC) [Mass/Vol] 33.6 g/dL Normal 28.4-34.8 [facility] Comment on above: Performed By: #### C P, CDP #### [address] [place] [address] [place] Kid Buffer: Tomy Steven MD MCV (RBC) [Entitic vol] 108.5 fL High 82.6-102.9 [facility] Comment on above: Performed By: #### C P, CDP #### [address] [place] [address] [place] Kid Buffer: Tomy Steven MD NRBC Automated 0.0 per 100 WBC Normal 0.0 [facility] Comment on above: Performed By: #### C P, CDP #### [address] [place] [address] [place] Buffer: Tomy Steven MD Platelet mean volume (Bld) [Entitic vol] 10.1 fL Normal 8.1-13.5 [facility] Comment on above: Performed By: #### C P, CDP #### [facility] [address] [place] [address] [place] Kid Buffer: Tomy Steven MD Platelets (Bld) [#/Vol] 198 10*3/uL Normal 138-453 [facility] Comment on above: Performed By: #### C P, CDP #### [facility] [address] [place] [address] [place] Kid Buffer: Tomy Steven MD RBC (Bld) [#/Vol] 3.07 10*6/uL Low 4.21-5.77 [facility] Comment on above: Performed By: #### C P, CDP #### [facility] [address] [place] [address] [place] Kid Buffer: Tomy Steven MD WBC (Bld) [#/Vol] 4.0 10*3/uL Normal 3.5-11.3 [facility] Comment on above: Performed By: #### C P, CDP #### [address] [place] [address] [place] Kid Buffer: Tomy Steven MD Comp Metabolic Profon 2023 Albumin [Mass/Vol] 4.2 g/dL Normal 3.5-5.2 [facility] Comment on above: Performed By: #### C P, CDP #### [facility] [address] [place], [place] [address]46[address]83 [place] Kid Buffer: Tomy Steven MD Albumin/Glob Ratio 1.8 Normal 1.0-2.5 [facility] Comment on above: Performed By: #### C P, CDP #### [facility] [address] [place] [address] [place] Kid Buffer: Tomy Steven MD Alkaline Phos 67 U/L Normal 40-[address] [facility] Comment on above: Performed By: #### C P, CDP #### [facility] [address] [place], [place] [id number] [place] Kid Buffer: Tomy Steven MD ALT [Catalytic activity/Vol] 31 U/L Normal 5-41 [facility] Comment on above: Performed By: #### C P, CDP #### [facility] [address] [place], [place] [id number] [place] Kid Buffer: Tomy Steven MD Anion gap [Moles/Vol] 9 mmol/L Normal 9-17 [facility] Comment on above: Performed By: #### C P, CDP #### [facility] [address] [place], [place] [id number] [place] Kid Buffer: Tomy Steven MD AST [Catalytic activity/Vol] 26 U/L Normal <40 [facility] Comment on above: Performed By: #### C P, CDP #### [facility] [address] [place], [place] 060[address]83 [place] Kid Buffer: Tomy Steven MD Bilirubin [Mass/Vol] 0.6 mg/dL Normal 0.3-1.2 [facility] Comment on above: Performed By: #### C P, CDP #### [facility] [address] [place], [place] [phone] [place] Kid Buffer: Tomy Steven MD BUN/CRE Ratio 11 Normal 9-[address] [facility] Comment on above: Performed By: #### C P, CDP #### [facility] [address] [place], [place] [phone] [place] Kid Buffer: Tomy Steven MD Calcium [Mass/Vol] 9.2 mg/dL Normal 8.6-10.4 [facility] Comment on above: Performed By: #### C P, CDP #### [facility] [address] [place], [place] [id number] [place] Buffer: Tomy Steven MD Chloride [Moles/Vol] 106 mmol/L Normal 98-107 [facility] Comment on above: Performed By: #### C P, CDP #### [facility] [address] [place] [address] [place] Kid Buffer: Tomy Steven MD CO2 [Moles/Vol] 27 mmol/L Normal 20-31 [facility] Comment on above: Performed By: #### C P, CDP #### [facility] [address] [place] [address] [place] Kid Buffer: Tomy Steven MD Creatinine [Mass/Vol] 0.7 mg/dL Normal 0.7-1.2 [facility] Comment on above: Performed By: #### C P, CDP #### [facility] [address] [place] [address] [place] Kid Buffer: Tomy Steven MD GFR/1.73 sq M.predicted among non-blacks MDRD (S/P/Bld) [Vol rate/Area] mL/min/{1.73_m2} Normal >60 [facility] Comment on above: Result Comment: These results are not intended for use in patients <18 years of age. eGFR results are calculated without a race factor using the 2020 CKD-EPI equation. Careful clinical correlation is recommended, particularly when comparing to results calculated using previous equations. The CKD-EPI equation is less accurate in patients with extremes of muscle mass, extra-renal metabolism of creatine, excessive creatine ingestion, or following therapy that affects renal tubular secretion. Performed By: #### C P, CDP #### [facility] [address] [place] [address] [place] Buffer: Tomy Steven MD Glucose [Mass/Vol] 135 mg/dL High 70-99 [facility] Comment on above: Performed By: #### C P, CDP #### [facility] [address] [place] [address] [place] Buffer: Tomy Steven MD Potassium [Moles/Vol] 4.2 mmol/L Normal 3.7-5.3 [facility] Comment on above: Performed By: #### C P, CDP #### [facility] [address] [place] [address] [place] Kid Buffer: Tomy Steven MD Protein [Mass/Vol] 6.5 g/dL Normal 6.4-8.3 [facility] Comment on above: Performed By: #### C P, CDP #### [facility] [address] [place], [place] [id number] [place] Kid Buffer: Tomy Steven MD Sodium [Moles/Vol] 142 mmol/L Normal 135-144 [facility] Comment on above: Performed By: #### C P, CDP #### [facility] [address] [place], [place] [id number] [place] Kid Buffer: Tomy Steven MD Urea nitrogen [Mass/Vol] 8 mg/dL Normal 8-23 [facility] Comment on above: Performed By: #### C P, CDP #### [facility] [address] [place] [address] [place] Buffer: Tomy Steven MD Comprehensive Metabolic Pane [facility] 08-31-2023 Albumin [Mass/Vol] 4.2 g/dL 3.5 - 5.2 g/dL [facility] Albumin/Globulin [Mass ratio] 1.8 {ratio} 1.0 - 2.[address] [facility] ALP [Catalytic activity/Vol] 67 U/L 40 - 129 U/L [facility] ALT [Catalytic activity/Vol] 31 U/L 5 - 41 U/L [facility] Anion gap [Moles/Vol] 9 mmol/L 9 - 17 mmol/L [facility] AST [Catalytic activity/Vol] 26 U/L NINF - 40 U/L [facility] Bilirubin [Mass/Vol] 0.6 mg/dL 0.3 - 1 .2 mg/dL [facility] Calcium [Mass/Vol] 9.2 mg/dL 8.6 - 10. 4 mg/dL [facility] Chloride [Moles/Vol] 106 mmol/L 98 - 10 7 mmol/L [facility] CO2 [Moles/Vol] 27 mmol/L 20 - 31 mmol/L [facility] Creatinine [Mass/Vol] 0.7 mg/dL 0.7 - 1.2 mg/dL [facility] GFR/1.73 sq M.predicted MDRD (S/P/Bld) [Vol rate/Area] - PINF [facility] Comment on above: These results are not intended for use in patients <18 years of age. eGFR results are calculated without a race factor using the 2020 CKD-EPI equation. Careful clinical correlation is recommended, particularly when comparing to results calculated using previous equations. The CKD-EPI equation is less accurate in patients with extremes of muscle mass, extra-renal metabolism of creatine, excessive creatine ingestion, or following therapy that affects renal tubular secretion. Glucose [Mass/Vol] 135 mg/dL High 70 - 99 mg/dL [facility] Interpretation and review of laboratory results Abnormal [facility] Potassium [Moles/Vol] 4.2 mmol/L 3.7 - 5.3 mmol/L [facility] Protein [Mass/Vol] 6.5 g/dL 6.4 - 8.3 g/dL [facility] Sodium [Moles/Vol] 142 mmol/L 135 - 144 mmol/L [facility] Urea nitrogen [Mass/Vol] 8 mg/dL 8 - 23 mg/dL [facility] Urea nitrogen/Creatinine [Mass ratio] 11 mg/mg 9 - 20 [facility] Hemoglobin A1Con 08-31-2023 Glucose [Mass/Vol] 100 mg/dL Normal [facility] Comment on above: Result Comment: The ADA and AACC recommend providing the estimated average glucose result to permit better patient understanding of their HBA1c result. Performed By: #### U RADHA GUERRIER #### [facility] [address] [place] [address] [place] Kid Buffer: Tomy Steven MD HbA1c (Bld) [Mass fraction] 5.1 % Normal 4.0-6.0 [facility] Comment on above: Performed By: #### U AX, UMICAO #### [address] [place] [address] White Kid Buffer: Tomy Steven MD Average glucose Estimated from glycated hemoglobin (Bld) [Mass/Vol] 100 mg/dL [facility] Comment on above: The ADA and AACC rec ommend providing the estimated average glucose result to permit better patient understanding of their HBA1c result. HbA1c (Bld) [Mass fraction] 5.1 % 4.0 - 6.0 % [facility] MRSA, DNA, Nasalon 4 MRSA, DNA, Nasal Negative Normal [facility] Comment on above: Result Comment: [facility]: MRSA DNA not detected by nucleic acid amplification. Results should be used as an adjunct to nosocomial control efforts to identify patients needing enhanced precautions. The test is not intended to identify patients with staphylococcal infections. Results should not be used to guide or monitor treatment for MRSA infections. Performed By: #### M RSANO #### [id number] [place], [place] [id number] White Kid Buffer: Cristopher Cornell MD [address] [place] [address] [place] Kid Buffer: Tomy Steven MD APTTon 3 aPTT Coag (Bld) [Time] 36.1 s High 26.8-34.8 [facility] Comment on above: Result Comment: IV Heparin Therapy Range: 62.0-94.0 Performed By: #### P T, PTT #### [address] [place] [address] White Kid Buffer: Tomy Steven MD MRSA, DNA, Nasalon 4 Specimen Description .NASAL SWAB Normal [facility] Comment on above: Performed By: #### M RSANO #### [facility] [address] [place] [address] White Kid Buffer: Cristopher Cornell MD [address] [place] [address] [place] Kid Buffer: Tomy Steven MD PTon 08-11-2023 INR Coag (PPP) [Relative time] 1.4 {INR} Normal [facility] Comment on above: Result Comment: Therapeutic Range: Moderate Anticoagulant Intensity: INR = 2.0-3.0 High Anticoagulant Intensity: INR = 2.5-3.5 Performed By: #### P T, PTT #### [facility] [address] [place] [address] White Kid Buffer: Tomy Steven MD PT Coag (PPP) [Time] 17.5 s High 11.9-14.8 [facility] Comment on above: Performed By: #### P T, PTT #### [address] [place] [address] White Kid Buffer: Tomy Steven MD Type + Screenon 08-11-2023 Type + Screen Sample Expiration 09/06/2023,2359 Arm Band Number [id number] ABO/Rh(D) A POSITIVE Antibody Screen NEGATIVE Normal [facility] Comment on above: Performed By: #### T YS #### [address] [place] [address] White Kid Buffer: Tomy Steven MD UA w/Reflex Cultureon 2023 Bilirubin, SemiQt,Ur Negative Normal NEG [facility] Comment on above: Performed By: #### U HBEERT GUERRIERO #### [facility] [address] [place] [address] White Kid Buffer: Tomy Steven MD Blood, Urine Negative Normal NEG [facility] Comment on above: Performed By: #### U HEBERT GUERRIERO #### [address] [place] [address] White Kid Buffer: Tomy Steven MD Clarity (U) Clear Normal CLEAR [facility] Comment on above: Performed By: #### U AX, UMICAO #### [facility] [address] [place] [address] Dr[place], [place] [phone] White Kid Buffer: Tomy Steven MD Color (U) Yellow Normal YEL [facility] Comment on above: Performed By: #### U AX, UMICAO #### [facility] [address] [place] [address] Dr[place], [place] [phone] White Kid Buffer: Tomy Steven MD Glucose Ql (U) Negative Normal NEG [facility] Comment on above: Performed By: #### U AX, UMICAO #### [facility] [address] [place] [address] Dr[place], [place] [phone] White Kid Buffer: Tomy Steven MD Ketones Ql (U) TRACE Abnormal NEG [facility] Comment on above: Performed By: #### U AX, UMICAO #### [facility] [address] [place] [address] Dr[place], [place] [id number] White Kid Buffer: Tomy Steven MD Leukocyte esterase Test strip Ql (U) Negative Normal NEG [facility] Comment on above: Performed By: #### U AX, UMICAO #### [address] [place], [place] [phone] White Kid Buffer: Tomy Steven MD Nitrite,Ur Negative Normal [facility] Comment on above: Performed By: #### U AX, UMICAO #### [facility] [address] [place] [address] Dr[place], [place] [phone] White Kid Buffer: Tomy Steven MD PH,Ur 6.0 Normal 5.0-9.0 [facility] Comment on above: Performed By: #### U AX, UMICAO #### [facility] [address] [place] [address] Dr[place], [place] [id number] White Kid Buffer: Tomy Steven MD Protein Ql (U) Negative Normal NEG [facility] Comment on above: Performed By: #### U AX, UMICAO #### [facility] [address] [place], [place] [phone] White Kid Buffer: Tomy Steven MD Spec. [place],Ur >1.030 High 1.010-1.020 [facility] Comment on above: Performed By: #### U AX, UMICAO #### [facility] [address] [place], [place] [phone] White Kid Buffer: Tomy Steven MD Urobilinogen,Ur ELEVATED Normal 0.0-1.0 [facility] Comment on above: Performed By: #### U AX, UMICAO #### [facility] [address] [place] [address] [place] [address] White Kid Buffer: Tomy Steven MD Urinalysis,Microon 4 Bacteria TRACE Abnormal [facility] Comment on above: Performed By: #### U AX, UMICAO #### [facility] [address] [place] [address] [place] [address] White Kid Buffer: Tomy Steven MD Crystals LM Nom (Urine sed) GREATER THAN 50 Abnormal [facility] Comment on above: Result Comment: CALC IUM OXALATE Performed By: #### U AX, UMICAO #### [address] [place], [place] [phone] White Kid Buffer: Tomy Steven MD Epithelial cells LM Ql (Urine sed) None Normal 0-5 [facility] Comment on above: Performed By: #### U AX, UMICAO #### [facility] [address] [place], [place] [phone] White Kid Buffer: Tomy Steven MD Mucus Strands 1+ Abnormal [facility] Comment on above: Performed By: #### U AX, UMICAO #### [facility] [address] [place], [place] [phone] White Kid Buffer: Tomy Steven MD Urine RBC's None Normal 0-2 [facility] Comment on above: Performed By: #### U AX, UMICAO #### [facility] [address] [place] [address] White Kid Buffer: Tomy Steven MD Urine WBC's None Normal 0-5 [facility] Comment on above: Performed By: #### U AX, UMICAO #### [facility] [address] [place] [address] White Kid Buffer: Tomy Steven MD Erythropoietinon 08-08-2023 Erythropoietin 64 mU/mL High 4-27 [facility] Comment on above: Result Comment: (NOT E) INTERPRETIVE INFORMATION: Erythropoietin Normal serum concentrations of erythropoietin for 95% of individuals with normal hematocrits range from 4-27 mU/mL. As the hematocrit is lowered by iron deficiency, aplastic, or hemolytic anemia, the concentration of erythropoietin increases as shown in the graph below. In the absence of anemia, elevated concentrations are seen in renal tumors, as a manifestation of renal transplant rejection, and in secondary polycythemia. Low values may be observed in hemochromatosis. Expected Erythropoietin Concentrations in Patients with Uncomplicated Anemia Erythropoietin (mU/mL) 100,000 - + + 10,000 - +....... + ....... 1,000 - + ....... + ........ 100 - + ........ + ........ 10 - + ........ +---+---+---+---+---+---+ 10 20 30 40 50 60 70 (Hematocrit %) (Contributions To Nephrology 1988:66:54-62) Decreased erythropoietin concentrations with an elevated hematocrit are observed in patients with polycythemia rubra vera, and with a decreased hematocrit in patients with HIV infection who are receiving AZT. Patients on AZT who have anemia and erythropoietin concentrations of less than or equal to 500 mU/mL may benefit from therapy with recombinant EPO ([facility] [id number],1989). Performed By: [facility] [address] [place] [id number] [employer] Supervisor: Juan J Espinosa MD, PhD CLIA Number: [id number] Performed By: #### C DP, CP #### [place] [address] White Kid Buffer: Cristopher Cornell MD #### AERY #### [facility] [address] [place] [address] White Kid Buffer: Edward Meza MD CBC with Diffon 08-07-2023 Abs. Basophil 0.00 k/uL Normal 0.0-0.2 [facility] Comment on above: Performed By: #### C DP, CP #### [place] [address] White Kid Buffer: Cristopher Cornell MD #### AERY #### [facility] [address] [place] [id number] White Kid Buffer: dEward Meza MD Abs.Imm.Granulocyte 0.00 k/uL Normal 0.00-0.30 [facility] Comment on above: Performed By: #### C DP, CP #### [place] [address] White Kid Buffer: Cristopher Cornell MD #### AERY #### [facility] [address] [place] [address] White Kid Buffer: Edward Meza MD Abs.Neutrophil (Seg) 0.61 k/uL Low 1.8-7.7 [facility] Comment on above: Performed By: #### C DP, CP #### [place] [address] White Kid Buffer: Cristopher Cornell MD #### AERY #### [facility] [address] [place], [place] [phone] White Kid Buffer: Edward Meza MD Basophils/100 WBC (Bld) 0 % Normal 0-2 [facility] Comment on above: Performed By: #### C DP, CP #### [facility] [address] [place] [address] White Kid Buffer: Cristopher Cornell MD #### AERY #### [facility] [address] [place] [address] White Kid Buffer: Edward Meza MD Eosinophils (Bld) [#/Vol] 0.11 10*3/uL Normal 0.0-0.4 [facility] Comment on above: Performed By: #### C DP, CP #### [facility] [address] [place] [address] White Kid Buffer: Cristopher Cornell MD #### AERY #### [facility] [address] [place], [place] [phone] White Kid Buffer: Edward Meza MD Eosinophils/100 WBC (Bld) 2 % Normal 1-4 [facility] Comment on above: Performed By: #### C DP, CP #### [address] [address] White Kid Buffer: Cristopher Cornell MD #### AERY #### [facility] [address] [place], [place] [phone] White Kid Buffer: Edward Meza MD Immature granulocytes/100 WBC (Bld) 0 % Normal 0 [facility] Comment on above: Performed By: #### C DP, CP #### [facility] [address] [place] [address] White Kid Buffer: Cristopher Cornell MD #### AERY #### [facility] [address] [place] [address] White Kid Buffer: Edward Meza MD Lymphocytes (Bld) [#/Vol] 4.39 10*3/uL Normal 1.0-4.8 [facility] Comment on above: Performed By: #### C DP, CP #### [address] [address] White Kid Buffer: Cristopher Cornell MD #### AERY #### [facility] [address] [place], [place] [id number] White Kid Buffer: Edward Meza MD Lymphocytes/100 WBC (Bld) 80 % High 24-44 [facility] Comment on above: Performed By: #### C DP, CP #### [address] [address] White Kid Buffer: Cristopher Cornell MD #### AERY #### [facility] [address] [place], [place] [id number] White Kid Buffer: Edward Meza MD Monocytes (Bld) [#/Vol] 0.39 10*3/uL Normal 0.1-0.8 [facility] Comment on above: Performed By: #### C DP, CP #### [address] [address] White Kid Buffer: Cristopher Cornell MD #### AERY #### [facility] [address] [place] [phone] White Kid Buffer: Edward Meza MD Monocytes/100 WBC (Bld) 7 % Normal 1-7 [facility] Comment on above: Performed By: #### C DP, CP #### [address] [address] White Kid Buffer: Cristopher Cornell MD #### AERY #### [facility] [address] [place], [place] [phone] White Kid Buffer: Edward Meza MD Morphology Porfirio (Bld) [Interp] ANISOCYTOSIS PRESENT Normal [facility] Comment on above: Result Comment: MACR OCYTOSIS PRESENT SMUDGE CELLS PRESENT Performed By: #### C DP, CP #### [address] [address] White Kid Buffer: Cristopher Cornell MD #### AERY #### [facility] [address] [place] [address] White Kid Buffer: Edward Meza MD Neutrophil (Seg) 11 % Low 36-66 [facility] Comment on above: Performed By: #### C DP, CP #### [address] [address] White Kid Buffer: Cristopher Cornell MD #### AERY #### [facility] [address] [place] [address] White Kid Buffer: Edward Meza MD Nucleated RBC'S 1 per 100 WBC High 0 [facility] Comment on above: Performed By: #### C DP, CP #### [address] [address] White Kid Buffer: Cristopher Cornell MD #### AERY #### [facility] [address] [place] [address] White Kid Buffer: Edward Meza MD Erythrocyte distribution width (RBC) [Ratio] 16.0 % High 11.8-14.4 [facility] Comment on above: Performed By: #### C DP, CP #### [address] [address] White Kid Buffer: Cristopher Cornell MD #### AERY #### [facility] [address] [place] [address] White Kid Buffer: Edward Meza MD Hematocrit (Bld) [Volume fraction] 32.7 % Low 40.7-50.3 [facility] Comment on above: Performed By: #### C DP, CP #### [facility] [address] [place] [address] White Kid Buffer: Cristopher Cornell MD #### AERY #### [facility] [address] [place] [address] White Kid Buffer: Edward Meza MD Hemoglobin (Bld) [Mass/Vol] 11.0 g/dL Low 13.0-17.0 [facility] Comment on above: Performed By: #### C DP, CP #### [address] [address] White Kid Buffer: Cristopher Cornell MD #### AERY #### [facility] [address] [place] [address] White Kid Buffer: Edward Meza MD MCH (RBC) [Entitic mass] 36.2 pg High 25.2-33.5 [facility] Comment on above: Performed By: #### C DP, CP #### [address] [address] White Kid Buffer: Cristopher Cornell MD #### AERY #### [facility] [address] [place] [phone] White Kid Buffer: Edward Meza MD MCHC (RBC) [Mass/Vol] 33.6 g/dL Normal 28.4-34.8 [facility] Comment on above: Performed By: #### C DP, CP #### [address] [address] White Kid Buffer: Cristopher Cornell MD #### AERY #### [facility] [address] [place] [address] White Kid Buffer: Edward Meza MD MCV (RBC) [Entitic vol] 107.6 fL High 82.6-102.9 [facility] Comment on above: Performed By: #### C DP, CP #### [address] [address] White Kid Buffer: Cristopher Cornell MD #### AERY #### [facility] [address] [place] [address] White Kid Buffer: Edward Meza MD NRBC Automated 0.0 per 100 WBC Normal 0.0 [facility] Comment on above: Performed By: #### C DP, CP #### [address] [address] White Kid Buffer: Cristopher Cornell MD #### AERY #### [facility] [address] [place] [address] White Kid Buffer: Edward Meza MD Platelet mean volume (Bld) [Entitic vol] 10.7 fL Normal 8.1-13.5 [facility] Comment on above: Performed By: #### C DP, CP #### [address] [phone] [place] Kid Buffer: Cristopher Cornell MD #### AERY #### [facility] [address] [place] [address] White Kid Buffer: Edward Meza MD Platelets (Bld) [#/Vol] 201 10*3/uL Normal 138-453 [facility] Comment on above: Performed By: #### C DP, CP #### [address] [address] [place] Kid Buffer: Cristopher Cornell MD #### AERY #### [facility] [address] [place] [address] White Kid Buffer: Edward Meza MD RBC (Bld) [#/Vol] 3.04 10*6/uL Low 4.21-5.77 [facility] Comment on above: Performed By: #### C DP, CP #### [address] [address] White Kid Buffer: Cristopher Cornell MD #### AERY #### [facility] [address] [place] [address] White Kid Buffer: Edward Meza MD WBC (Bld) [#/Vol] 5.5 10*3/uL Normal 3.5-11.3 [facility] Comment on above: Performed By: #### C DP, CP #### [facility] [address] [place] [address] White Kid Buffer: Cristopher Cornell MD #### AERY #### [facility] [address] [place] [address] White Kid Buffer: Edward Meza MD Comp Metabolic Profon 2023 Albumin [Mass/Vol] 4.3 g/dL Normal 3.5-5.2 [facility] Comment on above: Performed By: #### C DP, CP #### [address] [address] White Kid Buffer: Cristopher Cornell MD #### AERY #### [facility] [address] [place] [address] White Kid Buffer: Edward Meza MD Albumin/Glob Ratio 2.0 Normal 1.0-2.5 [facility] Comment on above: Performed By: #### C DP, CP #### [address] [address] White Kid Buffer: Cristopher Cornell MD #### AERY #### [facility] [address] [place] [address] White Kid Buffer: Edward Meza MD Alkaline Phos 65 U/L Normal 40-129 [facility] Comment on above: Performed By: #### C DP, CP #### [facility] [address] [place] [address] White Kid Buffer: Cristopher Cornell MD #### AERY #### [facility] [address] [place] [address] White Kid Buffer: Edward Meza MD ALT [Catalytic activity/Vol] 31 U/L Normal 10-50 [facility] Comment on above: Performed By: #### C DP, CP #### [address] [address] White Kid Buffer: Cristopher Cornell MD #### AERY #### [facility] [address] [place], [place] [phone] White Kid Buffer: Edward Meza MD Anion gap [Moles/Vol] 8 mmol/L Low 9-16 [facility] Comment on above: Performed By: #### C DP, CP #### [address] [address] White Kid Buffer: Cristopher Cornell MD #### AERY #### [facility] [address] [place] [phone] White Kid Buffer: Edward Meza MD AST [Catalytic activity/Vol] 29 U/L Normal 10-50 [facility] Comment on above: Performed By: #### C DP, CP #### [address] [address] White Kid Buffer: Cristopher Cornell MD #### AERY #### [facility] [address] [place], [place] [phone] White Kid Buffer: Edward Meza MD Bilirubin [Mass/Vol] 0.6 mg/dL Normal 0.00-1.20 [facility] Comment on above: Performed By: #### C DP, CP #### [address] [address] White Kid Buffer: Cristopher Cornell MD #### AERY #### [facility] [address] [place], [place] [phone] White Kid Buffer: Edward Meza MD Calcium [Mass/Vol] 9.0 mg/dL Normal 8.6-10.4 [facility] Comment on above: Performed By: #### C DP, CP #### [address] [address] White Kid Buffer: Cristopher Cornell MD #### AERY #### [facility] [address] [place] [address] White Kid Buffer: Edward Meza MD Chloride [Moles/Vol] 107 mmol/L Normal 98-107 [facility] Comment on above: Performed By: #### C DP, CP #### [facility] [address] [place] [address] White Kid Buffer: Cristopher Cornell MD #### AERY #### [facility] [address] [place] [address] White Kid Buffer: Edward Meza MD CO2 [Moles/Vol] 26 mmol/L Normal 20-31 [facility] Comment on above: Performed By: #### C DP, CP #### [address] [address] White Kid Buffer: Cristopher Cornell MD #### AERY #### [facility] [address] [place] [address] White Kid Buffer: Edward Meza MD Creatinine [Mass/Vol] 0.8 mg/dL Normal 0.70-1.20 [facility] Comment on above: Performed By: #### C DP, CP #### [address] [address] White Kid Buffer: Cristopher Cornell MD #### AERY #### [facility] [address] [place] [address] White Kid Buffer: Edward Meza MD GFR/1.73 sq M.predicted among non-blacks MDRD (S/P/Bld) [Vol rate/Area] mL/min/{1.73_m2} Normal >60 [facility] Comment on above: Result Comment: These results are not intended for use in patients <18 years of age. eGFR results are calculated without a race factor using the 2020 CKD-EPI equation. Careful clinical correlation is recommended, particularly when comparing to results calculated using previous equations. The CKD-EPI equation is less accurate in patients with extremes of muscle mass, extra-renal metabolism of creatine, excessive creatine ingestion, or following therapy that affects renal tubular secretion. Performed By: #### C DP, CP #### [facility] [address] [place] [phone] [place] Kid Buffer: Cristopher Cornell MD #### AERY #### [facility] [address] [place], [place] [phone] White Kid Buffer: Edward Meza MD Glucose [Mass/Vol] 163 mg/dL High 74-99 [facility] Comment on above: Performed By: #### C DP, CP #### [facility] [address] [address] White Kid Buffer: Cristopher Cornell MD #### AERY #### [facility] [address] [place] [phone] White Kid Buffer: Edward Meza MD Potassium [Moles/Vol] 4.7 mmol/L Normal 3.7-5.3 [facility] Comment on above: Performed By: #### C DP, CP #### [facility] [address] [address] White Kid Buffer: Cristopher Cornell MD #### AERY #### [facility] [address] [place], [place] [phone] White Kid Buffer: Edward Meza MD Protein [Mass/Vol] 6.2 g/dL Low 6.6-8.7 [facility] Comment on above: Performed By: #### C DP, CP #### [facility] [address] [place] [address] White Kid Buffer: Cristopher Cornell MD #### AERY #### [facility] [address] [place], [place] [phone] White Kid Buffer: Edward Meza MD Sodium [Moles/Vol] 141 mmol/L Normal 136-145 [facility] Comment on above: Performed By: #### C DP, CP #### [facility] [address] [place] [phone] White Kid Buffer: Cristopher Cornell MD #### AERY #### [facility] [address] [place] [address] White Kid Buffer: Edward Meza MD Urea nitrogen [Mass/Vol] 13 mg/dL Normal 8-23 [facility] Comment on above: Performed By: #### C DP, CP #### [address] [phone] White Kid Buffer: Cristopher Cornell MD #### AERY #### [facility] [address] [place] [address] White Kid Buffer: Edward Meza MD XR CHEST (2 VW)on 08-07-2023 XR CHEST (2 VW) EXAMINATION: TWO XRAY VIEWS OF THE CHEST 08/07/2023 11:15 am COMPARISON: 03/26/2022 HISTORY: ORDERING SYSTEM PROVIDED HISTORY: Pre-operative clearance TECHNOLOGIST PROVIDED HISTORY: pre-op FINDINGS: The lungs are without acute focal process. There is no effusion or pneumothorax. The cardiomediastinal silhouette is stable. The osseous structures are stable. IMPRESSION: No acute process. Interpreted by: Rafael Grijalva MD Signed by: Rafael Grijalva MD 08/07/23 Final result Normal [facility] CBC with Diffon 05-05-2023 Abs. Basophil 0.00 k/uL Normal 0.0-0.2 [facility] Comment on above: Performed By: #### C DP, CP #### [facility] [place], [place] [id number] [place] Buffer: Cristopher Cornell MD Abs.Imm.Granulocyte 0.00 k/uL Normal 0.00-0.30 [facility] Comment on above: Performed By: #### C DP, CP #### [address] [address] [place] Buffer: Cristopher Cornell MD Abs.Neutrophil (Seg) 1.03 k/uL Low 1.8-7.7 [facility] Comment on above: Performed By: #### C DP, CP #### [address] [address] [place] Buffer: Cristopher Cornell MD Basophils/100 WBC (Bld) 0 % Normal 0-2 [facility] Comment on above: Performed By: #### C DP, CP #### [address] [address] [place] Buffer: Cristopher Cornell MD Eosinophils (Bld) [#/Vol] 0.14 10*3/uL Normal 0.0-0.4 [facility] Comment on above: Performed By: #### C DP, CP #### [address] [address] [place] Buffer: Cristopher Cornell MD Eosinophils/100 WBC (Bld) 3 % Normal 1-4 [facility] Comment on above: Performed By: #### C DP, CP #### [address] [address] [place] Buffer: Cristopher Cornell MD Immature granulocytes/100 WBC (Bld) 0 % Normal 0 [facility] Comment on above: Performed By: #### C DP, CP #### [address] [address] [place] Buffer: Cristopher Cornell MD Lymphocytes (Bld) [#/Vol] 3.01 10*3/uL Normal 1.0-4.8 [facility] Comment on above: Performed By: #### C DP, CP #### [address] [place] [address] [place] Buffer: Cristopher Cornell MD Lymphocytes/100 WBC (Bld) 64 % High 24-44 [facility] Comment on above: Performed By: #### C DP, CP #### [address] [address] [place] Buffer: Cristopher Cornell MD Monocytes (Bld) [#/Vol] 0.52 10*3/uL Normal 0.1-0.8 [facility] Comment on above: Performed By: #### C DP, CP #### [address] [address] [place] Buffer: Cristopher Cornell MD Monocytes/100 WBC (Bld) 11 % High 1-7 [facility] Comment on above: Performed By: #### C DP, CP #### [address] [address] [place] Buffer: Cristopher Cornlel MD Morphology Porfirio (Bld) [Interp] MACROCYTOSIS PRESENT Normal [facility] Comment on above: Result Comment: ANIS OCYTOSIS PRESENT Performed By: #### C DP, CP #### [address] [address] [place] Buffer: Cristopher Cornell MD Neutrophil (Seg) 22 % Low 36-66 [facility] Comment on above: Performed By: #### C DP, CP #### [address] [address] [place] Buffer: Cristopher Cornell MD Erythrocyte distribution width (RBC) [Ratio] 16.2 % High 11.8-14.4 [facility] Comment on above: Performed By: #### C DP, CP #### [address] [address] [place] Buffer: Cristopher Cornell MD Hematocrit (Bld) [Volume fraction] 31.7 % Low 40.7-50.3 [facility] Comment on above: Performed By: #### C DP, CP #### [place] [address] [place] Buffer: Cristopher Cornell MD Hemoglobin (Bld) [Mass/Vol] 10.4 g/dL Low 13.0-17.0 [facility] Comment on above: Performed By: #### C DP, CP #### [place] [address] [place] Buffer: Cristopher Cornell MD MCH (RBC) [Entitic mass] 35.4 pg High 25.2-33.5 [facility] Comment on above: Performed By: #### C DP, CP #### [place] [address] [place] Buffer: Cristopher Cornell MD MCHC (RBC) [Mass/Vol] 32.8 g/dL Normal 28.4-34.8 [facility] Comment on above: Performed By: #### C DP, CP #### [place] [address] [place] Buffer: Cristopher Cornell MD MCV (RBC) [Entitic vol] 107.8 fL High 82.6-102.9 [facility] Comment on above: Performed By: #### C DP, CP #### [place] [address] [place] Buffer: Cristopher Cornell MD NRBC Automated 0.0 per 100 WBC Normal 0.0 [facility] Comment on above: Performed By: #### C DP, CP #### [place] [address] [place] Buffer: Cristopher Cornell MD Platelet mean volume (Bld) [Entitic vol] 11.0 fL Normal 8.1-13.5 [facility] Comment on above: Performed By: #### C DP, CP #### [facility] [employer] [address] [place] [address] [place] Buffer: Cristopher Cornell MD Platelets (Bld) [#/Vol] 204 10*3/uL Normal 138-453 [facility] Comment on above: Performed By: #### C DP, CP #### [address] [address] [place] Buffer: Cristopher Cornell MD RBC (Bld) [#/Vol] 2.94 10*6/uL Low 4.21-5.77 [facility] Comment on above: Performed By: #### C DP, CP #### [address] [address] [place] Buffer: Cristopher Cornell MD WBC (Bld) [#/Vol] 4.7 10*3/uL Normal 3.5-11.3 [facility] Comment on above: Performed By: #### C DP, CP #### [address] [address] [place] Buffer: Cristopher Cornell MD Comp Metabolic Profon 2022 Albumin [Mass/Vol] 3.9 g/dL Normal 3.5-5.2 [facility] Comment on above: Performed By: #### C DP, CP #### [address] [address] [place] Buffer: Cristopher Cornell MD Albumin/Glob Ratio 1.7 Normal 1.0-2.5 [facility] Comment on above: Performed By: #### C DP, CP #### [facility] [employer] [address] [place] [address] [place] Buffer: Cristopher Cornell MD Alkaline Phos 66 U/L Normal 40-129 [facility] Comment on above: Performed By: #### C DP, CP #### [address] [address] [place] Buffer: Cristopher Cornell MD ALT [Catalytic activity/Vol] 30 U/L Normal 5-41 [facility] Comment on above: Performed By: #### C DP, CP #### [address] [address] [place] Buffer: Cristopher Cornell MD Anion gap [Moles/Vol] 10 mmol/L Normal 9-17 [facility] Comment on above: Performed By: #### C DP, CP #### [address] [address] [place] Buffer: Cristopher Cornell MD AST [Catalytic activity/Vol] 33 U/L Normal <40 [facility] Comment on above: Performed By: #### C DP, CP #### [address] [address] [place] Buffer: Cristopher Cornell MD Bilirubin [Mass/Vol] 0.6 mg/dL Normal 0.3-1.2 [facility] Comment on above: Performed By: #### C DP, CP #### [address] [address] [place] Buffer: Cristopher Cornell MD Calcium [Mass/Vol] 8.9 mg/dL Normal 8.6-10.4 [facility] Comment on above: Performed By: #### C DP, CP #### [address] [address] [place] Buffer: Cristopher Cornell MD Chloride [Moles/Vol] 104 mmol/L Normal 98-107 [facility] Comment on above: Performed By: #### C DP, CP #### [address] [address] [place] Buffer: Cristopher Cornell MD CO2 [Moles/Vol] 25 mmol/L Normal 20-31 [facility] Comment on above: Performed By: #### C DP, CP #### [address] [address] [place] Buffer: Cristopher Cornell MD Creatinine [Mass/Vol] 0.7 mg/dL Normal 0.7-1.2 [facility] Comment on above: Performed By: #### C DP, CP #### [address] [address] [place] Buffer: Cristopher Cornell MD GFR/1.73 sq M.predicted among non-blacks MDRD (S/P/Bld) [Vol rate/Area] mL/min/{1.73_m2} Normal >60 [facility] Comment on above: Result Comment: These results are not intended for use in patients <18 years of age. eGFR results are calculated without a race factor using the 2020 CKD-EPI equation. Careful clinical correlation is recommended, particularly when comparing to results calculated using previous equations. The CKD-EPI equation is less accurate in patients with extremes of muscle mass, extra-renal metabolism of creatine, excessive creatine ingestion, or following therapy that affects renal tubular secretion. Performed By: #### C DP, CP #### [address] [address] [place] Buffer: Cristopher Cornell MD Glucose [Mass/Vol] 174 mg/dL High 70-99 [facility] Comment on above: Performed By: #### C DP, CP #### [address] [address] [place] Buffer: Cristopher Cornell MD Potassium [Moles/Vol] 4.1 mmol/L Normal 3.7-5.3 [facility] Comment on above: Performed By: #### C DP, CP #### [address] [address] [place] Buffer: Cristopher Cornell MD Protein [Mass/Vol] 6.2 g/dL Low 6.4-8.3 [facility] Comment on above: Performed By: #### C DP, CP #### [facility] [address] [place] [address] [place] Buffer: Cristopher Cornell MD Sodium [Moles/Vol] 139 mmol/L Normal 135-144 [facility] Comment on above: Performed By: #### C DP, CP #### [id number] [place] [address] [place] Buffer: Cristopher Cornell MD Urea nitrogen [Mass/Vol] 11 mg/dL Normal 8-23 [facility] Comment on above: Performed By: #### C DP, CP #### [id number] [place] [address] [place] Buffer: Cristopher Cornell MD CBC with Diffon 03-09-2023 Abs. Basophil <0.03 Normal 0.00-0.[address] [facility] Comment on above: Performed By: #### C DP, CP #### [facility] [address] [place] [address] Dr. [place], [facility] [place] Buffer: Tomy Steven MD Abs.Imm.Granulocyte <0.03 Normal 0.00-0.30 [facility] Comment on above: Performed By: #### C DP, CP #### [address] [place], [facility]83 [place] Buffer: Tomy Steven MD Abs.Neutrophil (Seg) 1.01 k/uL Low 1.50-8.10 [facility] Comment on above: Performed By: #### C DP, CP #### [address] [place], [place] [id number] [place] Buffer: Tomy Steven MD Basophils/100 WBC (Bld) 0 % Normal 0-2 M [facility] Comment on above: Performed By: #### C DP, CP #### [address] Veliz, [place] [address] [place] Buffer: Tomy Steven MD Eosinophils (Bld) [#/Vol] 0.09 10*3/uL Normal 0.00-0.44 [facility] Comment on above: Performed By: #### C DP, CP #### [address] Veliz, [place] [address] [place] Buffer: Tomy Steven MD Eosinophils/100 WBC (Bld) 2 % Normal 1-4 [facility] Comment on above: Performed By: #### C DP, CP #### [address] [place]iz, [place] [address] [place] Buffer: Tomy Steven MD Erythrocyte distribution width (RBC) [Ratio] 15.7 % High 11.8-14.4 [facility] Comment on above: Performed By: #### C DP, CP #### [address] Veliz, [place] [address] [place] Buffer: Tomy Steven MD Hematocrit (Bld) [Volume fraction] 31.3 % Low 40.7-50.3 [facility] Comment on above: Performed By: #### C DP, CP #### [address] [place]iz, [facility]83 [place] Buffer: Tomy Steven MD Hemoglobin (Bld) [Mass/Vol] 10.5 g/dL Low 13.0-17.0 [facility] Comment on above: Performed By: #### C DP, CP #### [address] Veliz, [facility]83 [place] Buffer: Tomy Steven MD Immature granulocytes/100 WBC (Bld) 0 % Normal 0 [facility] Comment on above: Performed By: #### C DP, CP #### [address] Veliz, [facility]83 [place] Buffer: Tomy Steven MD Lymphocytes (Bld) [#/Vol] 3.20 10*3/uL Normal 1.10-3.70 [facility] Comment on above: Performed By: #### C DP, CP #### [address] [place], [place] [id number] [place] Buffer: Tomy Steven MD Lymphocytes/100 WBC (Bld) 68 % High 24-43 [facility] Comment on above: Performed By: #### C DP, CP #### [address] [place]iz, [facility]83 [place] Buffer: Tomy Steven MD MCH (RBC) [Entitic mass] 36.3 pg High 25.2-33.5 [facility] Comment on above: Performed By: #### C DP, CP #### [address] [place] [id number] ( [place] Buffer: Tomy Steven MD MCHC (RBC) [Mass/Vol] 33.5 g/dL Normal 28.4-34.8 [facility] Comment on above: Performed By: #### C DP, CP #### [address] [place]iz, [place] [address] [place] Buffer: Tomy Steven MD MCV (RBC) [Entitic vol] 108.3 fL High 82.6-102.9 [facility] Comment on above: Performed By: #### C DP, CP #### [address] [place]iz, [facility]83 [place] Buffer: Tomy Steven MD Monocytes (Bld) [#/Vol] 0.42 10*3/uL Normal 0.10-1.20 [facility] Comment on above: Performed By: #### C DP, CP #### [address] [place], [place] [address] [place] Buffer: Tomy Steven MD Monocytes/100 WBC (Bld) 9 % Normal 3-12 M [facility] Comment on above: Performed By: #### C DP, CP #### [facility] [address] [place], [place] [id number] [place] Buffer: Tomy Steven MD Neutrophil (Seg) 21 % Low 36-65 [facility] Comment on above: Performed By: #### C DP, CP #### [facility] [address] [place], [facility]83 [place] Buffer: Tomy Steven MD NRBC Automated 0.0 per 100 WBC Normal 0.0 [facility] Comment on above: Performed By: #### C DP, CP #### [address] [place], [place] [id number] [place] Buffer: Tomy Steven MD Platelet mean volume (Bld) [Entitic vol] 10.1 fL Normal 8.1-13.5 [facility] Comment on above: Performed By: #### C DP, CP #### [address] [place], [place] [address] [place] Buffer: Tomy Steven MD Platelets (Bld) [#/Vol] 206 10*3/uL Normal 138-453 [facility] Comment on above: Performed By: #### C DP, CP #### [address] [place], [place] [phone] [place] Buffer: Tomy Steven MD RBC (Bld) [#/Vol] 2.89 10*6/uL Low 4.21-5.77 [facility] Comment on above: Performed By: #### C DP, CP #### [address] [place] [address] [place] Buffer: Tomy Steven MD WBC (Bld) [#/Vol] 4.7 10*3/uL Normal 3.5-11.3 [facility] Comment on above: Performed By: #### C DP, CP #### [facility] [address] [place] [address] Dr. [place], [place] [phone] [place] Buffer: Tomy Steven MD Comp Metabolic Profon 2022 Albumin [Mass/Vol] 4.4 g/dL Normal 3.5-5.2 [facility] Comment on above: Performed By: #### U AX, UMICAO #### [facility] [address] [place], [place] [phone] [place] Buffer: Tomy Steven MD Albumin/Glob Ratio 1.8 Normal 1.0-2.5 [facility] Comment on above: Performed By: #### U AX, UMICAO #### [facility] [address] [place], [place] [phone] [place] Buffer: Tomy Steven MD Alkaline Phos 78 U/L Normal 40-[address] [facility] Comment on above: Performed By: #### U AX, UMICAO #### [facility] [address] [place], [place] [phone] [place] Buffer: Tomy Steven MD ALT [Catalytic activity/Vol] 28 U/L Normal 5-41 [facility] Comment on above: Performed By: #### U AX, UMICAO #### [facility] [address] [place], [place] [phone] [place] Buffer: Tomy Steven MD Anion gap [Moles/Vol] 9 mmol/L Normal 9-17 [facility] Comment on above: Performed By: #### U AX, UMICAO #### [facility] [address] [place], [place] [phone] [place] Buffer: Tomy Steven MD AST [Catalytic activity/Vol] 29 U/L Normal <40 [facility] Comment on above: Performed By: #### U AX, UMICAO #### [facility] [address] [place], [place] [phone] [place] Buffer: Tomy Steven MD Bilirubin [Mass/Vol] 0.8 mg/dL Normal 0.3-1.2 [facility] Comment on above: Performed By: #### U AX, UMICAO #### [facility] [address] [place], [place] [phone] [place] Buffer: Tomy Steven MD BUN/CRE Ratio 15 Normal 9-[address] [facility] Comment on above: Performed By: #### U AX, UMICAO #### [facility] [address] [place], [place] [phone] [place] Buffer: Tomy Steven MD Calcium [Mass/Vol] 9.4 mg/dL Normal 8.6-10.4 [facility] Comment on above: Performed By: #### U AX, UMICAO #### [facility] [address] [place], [place] [phone] [place] Buffer: Tomy Steven MD Chloride [Moles/Vol] 107 mmol/L Normal 98-107 [facility] Comment on above: Performed By: #### U AX, UMICAO #### [facility] [address] [place], [place] [phone] [place] Buffer: Tomy Steven MD CO2 [Moles/Vol] 25 mmol/L Normal 20-31 [facility] Comment on above: Performed By: #### U AX, UMICAO #### [facility] [address] [place], [place] [phone] [place] Buffer: Tomy Steven MD Creatinine [Mass/Vol] 0.8 mg/dL Normal 0.7-1.2 [facility] Comment on above: Performed By: #### U AX, UMICAO #### [facility] [address] [place] [address] [place] Buffer: Tomy Steven MD GFR/1.73 sq M.predicted among non-blacks MDRD (S/P/Bld) [Vol rate/Area] mL/min/{1.73_m2} Normal >60 [facility] Comment on above: Result Comment: These results are not intended for use in patients <18 years of age. eGFR results are calculated without a race factor using the 2020 CKD-EPI equation. Careful clinical correlation is recommended, particularly when comparing to results calculated using previous equations. The CKD-EPI equation is less accurate in patients with extremes of muscle mass, extra-renal metabolism of creatine, excessive creatine ingestion, or following therapy that affects renal tubular secretion. Performed By: #### HEBERT MORANO #### [facility] [address] [place] [address] [place] [address] [place] Buffer: Tomy Steven MD Glucose [Mass/Vol] 97 mg/dL Normal 70-99 [facility] Comment on above: Performed By: #### HEBERT MORANO #### [address] [place] [address] [place] Buffer: Tomy Steven MD Potassium [Moles/Vol] 4.2 mmol/L Normal 3.7-5.3 [facility] Comment on above: Performed By: #### HEBERT MORANO #### [address] [place] [address] [place] Buffer: Tomy Steven MD Protein [Mass/Vol] 6.8 g/dL Normal 6.4-8.3 [facility] Comment on above: Performed By: #### RADHA MORAN #### [facility] [address] [place] [address] [place] [address] [place] Buffer: Tomy Steven MD Sodium [Moles/Vol] 141 mmol/L Normal 135-144 [facility] Comment on above: Performed By: #### U HEBERT GUERRIERO #### [address] [place] [address] [place] Buffer: Tomy Steven MD Urea nitrogen [Mass/Vol] 12 mg/dL Normal 8-23 [facility] Comment on above: Performed By: #### U RADHA GUERRIER #### [facility] [address] [place] [address] [place] Buffer: Tomy Steven MD Lipid Profileon 03-09-2023 Cholesterol [Mass/Vol] 102 mg/dL Normal <200 [facility] Comment on above: Result Comment: Cholesterol Guidelines: <200 Desirable 200-240 Borderline >240 Undesirable Performed By: #### L IPR #### [address] [address] [place] Buffer: Cristopher Cornell MD Cholesterol in HDL [Mass/Vol] 35 mg/dL Low >40 [facility] Comment on above: Result Comment: HDL Guidelines: <40 Undesirable 40-59 Borderline >59 Desirable Performed By: #### L IPR #### [address] [address] [place] Buffer: Cristopher Cornell MD Cholesterol in LDL [Mass/Vol] 49 mg/dL Normal 0-130 [facility] Comment on above: Result Comment: LDL Guidelines: <100 Desirable 100-129 Near to/above Desirable 130-159 Borderline >159 Undesirable Direct (measured) LDL and calculated LDL are not interchangeable tests. Performed By: #### L IPR #### [address] [address] [place] Buffer: Cristopher Cornell MD Cholesterol.total/Anu sterol in HDL [Mass ratio] 2.9 {ratio} Normal <5 [facility] Comment on above: Performed By: #### L IPR #### [address] [address] [place] Buffer: Cristopher Cornell MD Triglyceride [Mass/Vol] 88 mg/dL Normal <150 [facility] Comment on above: Result Comment: Triglyceride Guidelines: <150 Desirable 150-199 Borderline 200-499 High >499 Very high Based on AHA Guidelines for fasting triglyceride, April 2012. Performed By: #### L IPR #### [address] [address] [place] Buffer: Cristopher Cornell MD CBC w/Manual Diffon 01-23-20 23 Abs. Basophil 0.00 k/uL Normal 0.0-0.2 [facility] Comment on above: Performed By: #### C NICOLASA, CP #### [facility] [employer] [address] [place] [address] [place] Buffer: Cristopher Cornell MD Abs. Eosinophil 0.00 k/uL Normal 0.0-0.4 [facility] Comment on above: Performed By: #### C NICOLASA, CP #### [address] [address] [place] Buffer: Cristopher Cornell MD Abs. Lymph 4.53 k/uL Normal 1.0-4.8 [facility] Comment on above: Performed By: #### C NICOLASA, CP #### [place] [address] [place] Buffer: Cristopher Cornell MD Abs. Monocyte 0.44 k/uL Normal 0.1-0.8 [facility] Comment on above: Performed By: #### C NICOLASA, CP #### [facility] [employer] [address] [place] [address] [place] Buffer: Cristopher Cornell MD Abs.Imm.Granulocyte 0.13 k/uL Normal 0.00-0.30 [facility] Comment on above: Performed By: #### C NICOLASA, CP #### [facility] [employer] [address] [place] [address] [place] Buffer: Cristopher Cornell MD Abs.Neutrophil (Seg) 1.20 k/uL Low 1.8-7.7 [facility] Comment on above: Performed By: #### C NICOLASA, CP #### [facility] [employer] [address] [place] [address] [place] Buffer: Cristopher Cornell MD Basophil 0 % Normal 0-2 [facility] Comment on above: Performed By: #### C BCMD, CP #### [address] [address] [place] Buffer: Cristopher Cornell MD Eosinophil 0 % Low 1-4 [facility] Comment on above: Performed By: #### C BCMD, CP #### [address] [address] [place] Buffer: Cristopher Cornell MD Immature Granulocyte 2 % High 0 [facility] Comment on above: Performed By: #### C BCMD, CP #### [address] [address] [place] Buffer: Cristopher Cornell MD Lymphocyte 72 % High 24-44 [facility] Comment on above: Performed By: #### C BCMD, CP #### [address] [address] [place] Buffer: Cristopher Cornell MD Monocyte 7 % Normal 1-7 [facility] Comment on above: Performed By: #### C BCMD, CP #### [address] [address] [place] Buffer: Cristopher Cornell MD Morphology ANISOCYTOSIS PRESENT Normal [facility] Comment on above: Result Comment: MACR OCYTOSIS PRESENT Performed By: #### C BCMD, CP #### [address] [address] [place] Buffer: Cristopher Cornell MD Neutrophil (Seg) 19 % Low 36-66 [facility] Comment on above: Performed By: #### C BCMD, CP #### [address] [address] [place] Buffer: Cristopher Cornell MD MCH 35.9 pg High 25.2-33.5 [facility] Comment on above: Performed By: #### C BCMD, CP #### [address] [address] [place] Buffer: Cristopher Cornell MD MCHC 32.6 g/dL Normal 28.4-34.8 [facility] Comment on above: Performed By: #### C BCMD, CP #### [address] [address] [place] Buffer: Cristopher Cornell MD MCV 110.1 fL High 82.6-102.9 [facility] Comment on above: Performed By: #### C BCMD, CP #### [address] [address] [place] Buffer: Cristopher Cornell MD MPV 10.5 fL Normal 8.1-13.5 [facility] Comment on above: Performed By: #### C BCMD, CP #### [address] [address] [place] Buffer: Cristopher Cornell MD NRBC Automated 0.0 per 100 WBC Normal 0.0 [facility] Comment on above: Performed By: #### C BCMD, CP #### [address] [address] [place] Buffer: Cristopher Cornell MD Platelet Count 231 k/uL Normal 138-453 [facility] Comment on above: Performed By: #### C BCMD, CP #### [address] [address] [place] Buffer: Cristopher Cornell MD RBC Count 2.87 m/uL Low 4.21-5.77 [facility] Comment on above: Performed By: #### C BCMD, CP #### [address] [address] [place] Buffer: Cristopher Cornell MD RDW 15.9 % High 11.8-14.4 [facility] Comment on above: Performed By: #### C BCMD, CP #### [facility] [address] [place] [id number] [place] Buffer: Cristopher Cornell MD WBC Count 6.3 k/uL Normal 3.5-11.3 [facility] Comment on above: Performed By: #### C BCMD, CP #### [facility] [address] [place] [id number] [place] Buffer: Cristopher Cornell MD Comp Metabolic Profon 2022 Albumin [Mass/Vol] 4.2 g/dL Normal 3.5-5.2 [facility] Comment on above: Performed By: #### C BCMD, CP #### [facility] [employer] [address] [place] [phone] [place] Buffer: Cristopher Cornell MD Albumin/Glob Ratio 1.8 Normal 1.0-2.5 [facility] Comment on above: Performed By: #### C BCMD, CP #### [address] [id number] [place] Buffer: Cristopher Cornell MD Alkaline Phos 71 U/L Normal 40-129 [facility] Comment on above: Performed By: #### C BCMD, CP #### [address] [address] [place] Buffer: Cristopher Cornell MD ALT [Catalytic activity/Vol] 29 U/L Normal 5-41 [facility] Comment on above: Performed By: #### C BCMD, CP #### [address] [address] [place] Buffer: Cristopher Cornell MD Anion gap [Moles/Vol] 11 mmol/L Normal 9-17 [facility] Comment on above: Performed By: #### C BCMD, CP #### [address] [phone] [place] Buffer: Cristopher Cornell MD AST [Catalytic activity/Vol] 30 U/L Normal <40 [facility] Comment on above: Performed By: #### C NICOLASA, CP #### [address] [phone] [place] Buffer: Cristopher Cornell MD Bilirubin [Mass/Vol] 0.6 mg/dL Normal 0.3-1.2 [facility] Comment on above: Performed By: #### C NICOLASA, CP #### [address] [address] [place] Buffer: Cristopher Cornell MD Calcium [Mass/Vol] 9.3 mg/dL Normal 8.6-10.4 [facility] Comment on above: Performed By: #### C NICOLASA, CP #### [address] [phone] [place] Buffer: Cristopher Cornell MD Chloride [Moles/Vol] 108 mmol/L High 98-107 [facility] Comment on above: Performed By: #### C NICOLASA, CP #### [address] [phone] [place] Buffer: Cristopher Cornell MD CO2 [Moles/Vol] 23 mmol/L Normal 20-31 [facility] Comment on above: Performed By: #### C NICOLASA, CP #### [address] [address] [place] Buffer: Cristopher Cornell MD Creatinine [Mass/Vol] 0.97 mg/dL Normal 0.70-1.20 [facility] Comment on above: Performed By: #### C NICOLASA, CP #### [address] [address] [place] Buffer: Cristopher Cornell MD GFR/1.73 sq M.predicted among non-blacks MDRD (S/P/Bld) [Vol rate/Area] mL/min/{1.73_m2} Normal >60 [facility] Comment on above: Result Comment: These results are not intended for use in patients <18 years of age. eGFR results are calculated without a race factor using the 2020 CKD-EPI equation. Careful clinical correlation is recommended, particularly when comparing to results calculated using previous equations. The CKD-EPI equation is less accurate in patients with extremes of muscle mass, extra-renal metabolism of creatine, excessive creatine ingestion, or following therapy that affects renal tubular secretion. Performed By: #### C NICOLASA, CP #### [address] [address] [place] Buffer: Cristopher Cornell MD Glucose [Mass/Vol] 108 mg/dL High 70-99 [facility] Comment on above: Performed By: #### C NICOLASA, CP #### [address] [phone] [place] Buffer: Cristopher Cornell MD Potassium [Moles/Vol] 4.3 mmol/L Normal 3.7-5.3 [facility] Comment on above: Performed By: #### C NICOLASA, CP #### [address] [address] [place] Buffer: Cristopher Cornell MD Protein [Mass/Vol] 6.5 g/dL Normal 6.4-8.3 [facility] Comment on above: Performed By: #### C NICOLASA, CP #### [address] [address] [place] Buffer: Cristopher Cornell MD Sodium [Moles/Vol] 142 mmol/L Normal 135-144 [facility] Comment on above: Performed By: #### C NICOLASA, CP #### [address] [address] [place] Buffer: Cristopher Cornell MD Urea nitrogen [Mass/Vol] 18 mg/dL Normal 8-23 [facility] Comment on above: Performed By: #### C BCCT, CP #### [facility] [address] [place] [address] White Kid Buffer: Cristopher Cornell MD CBC with Manual Differential on 01-21-2023 Basophils (Bld) [#/Vol] 0.00 10*3/uL [facility] Basophils/100 WBC (Bld) 0 % 0 - 2 % [facility] Eosinophils % 0 % Low 1 - 4 % [facility] Eosinophils (Bld) [#/Vol] 0.00 10*3/uL [facility] Erythrocyte distribution width (RBC) [Ratio] 15.9 % High 11.8 - 14.4 % [facility] Hematocrit (Bld) [Volume fraction] 31.6 % Low 40.7 - 50.3 % [facility] Hemoglobin (Bld) [Mass/Vol] 10.3 g/dL Low 13.0 - 17.0 g/dL [facility] Immature granulocytes (Bld) [#/Vol] 0.13 10*3/uL [facility] Immature granulocytes/100 WBC (Bld) 2 % High [address] [facility] Interpretation and review of laboratory results Abnormal [facility] Lymphocytes/100 WBC (Bld) 72 % High 24 - 44 % [facility] Lymphocytes/100 WBC (Bld) 4.53 % [facility] MCH (RBC) [Entitic mass] 35.9 pg High 25.2 - 33.[address] [facility] MCHC (RBC) [Mass/Vol] 32.6 g/dL 28.4 - 34.8 g/dL [facility] MCV (RBC) [Entitic vol] 110.1 fL High 82.6 - 102.9 fL [facility] Monocytes/100 WBC (Bld) 7 % 1 - 7 % [facility] Monocytes/100 WBC (Bld) 0.44 % [facility] Morphology ANISOCYTOSIS PRESENT [facility] Morphology MACROCYTOSIS PRESENT [facility] Neutrophils/100 WBC (Bld) 19 % Low 36 - 66 % [facility] Nucleated RBC/100 WBC (Bld) [Ratio] 0.0 % 0.0 per [address] [facility] Platelet mean volume (Bld) [Entitic vol] 10.5 fL 8.1 - 13.[address] [facility] Platelets (Bld) [#/Vol] 231 10*3/uL [facility] RBC (Bld) [#/Vol] 2.87 10*6/uL Low 4.21 - 5.7 7 m/uL [facility] Segmented neutrophils/100 WBC (Bld) 1.20 % Low [facility] WBC other (Bld) [#/Vol] 6.3 [facility] Comprehensive Metabolic Pane lissa 01-21-2023 Albumin [Mass/Vol] 4.2 g/dL 3.5 - 5.2 g/dL [facility] Albumin/Globulin [Mass ratio] 1.8 {ratio} 1.0 - 2.[address] [facility] ALP [Catalytic activity/Vol] 71 U/L 40 - 129 U/L [facility] ALT [Catalytic activity/Vol] 29 U/L 5 - 41 U/L [facility] Anion gap [Moles/Vol] 11 mmol/L 9 - 17 mmol/L [facility] AST [Catalytic activity/Vol] 30 U/L NINF - 40 U/L [facility] Bilirubin [Mass/Vol] 0.6 mg/dL 0.3 - 1 .2 mg/dL [facility] Calcium [Mass/Vol] 9.3 mg/dL 8.6 - 10. 4 mg/dL [facility] Chloride [Moles/Vol] 108 mmol/L High 98 - 10 7 mmol/L [facility] CO2 [Moles/Vol] 23 mmol/L 20 - 31 mmol/L [facility] Creatinine [Mass/Vol] 0.97 mg/dL 0.70 - 1.20 mg/dL [facility] GFR/1.73 sq M.predicted MDRD (S/P/Bld) [Vol rate/Area] - PINF [facility] Comment on above: These results are not intended for use in patients <18 years of age. eGFR results are calculated without a race factor using the 2020 CKD-EPI equation. Careful clinical correlation is recommended, particularly when comparing to results calculated using previous equations. The CKD-EPI equation is less accurate in patients with extremes of muscle mass, extra-renal metabolism of creatine, excessive creatine ingestion, or following therapy that affects renal tubular secretion. Glucose [Mass/Vol] 108 mg/dL High 70 - 99 mg/dL [facility] Interpretation and review of laboratory results Abnormal [facility] Potassium [Moles/Vol] 4.3 mmol/L 3.7 - 5.3 mmol/L [facility] Protein [Mass/Vol] 6.5 g/dL 6.4 - 8.3 g/dL [facility] Sodium [Moles/Vol] 142 mmol/L 135 - 144 mmol/L [facility] Urea nitrogen [Mass/Vol] 18 mg/dL 8 - 23 mg/dL [facility] CHEST ABDOMEN PELVIS W CO NTRASTon 10-25-2022 CT CHEST ABDOMEN PELVIS W CONTRAST EXAMINATION: CT OF THE CHEST, ABDOMEN, AND PELVIS WITH CONTRAST 10/22/2022 11:51 am TECHNIQUE: CT of the chest, abdomen and pelvis was performed with the administration of intravenous contrast. Multiplanar reformatted images are provided for review. Automated exposure control, iterative reconstruction, and/or weight based adjustment of the mA/kV was utilized to reduce the radiation dose to as low as reasonably achievable. COMPARISON: 08/22/2008 HISTORY: ORDERING SYSTEM PROVIDED HISTORY: Prostate cancer (HCC) TECHNOLOGIST PROVIDED HISTORY: STAT Creatinine as needed:->Yes FINDINGS: Chest: Mediastinum: Thoracic aorta is nonaneurysmal and there is no evidence of dissection. Pulmonary arteries, heart and pericardium appear unremarkable. Scattered mediastinal nodes but no evidence of lymphadenopathy. Lungs/pleura: No evidence of pulmonary nodules, masses or infiltrates. Mild bilateral lower lobe atelectatic changes. No active pleural disease. Soft Tissues/Bones: No evidence of sclerotic, lytic or destructive bony lesions. Mild multilevel degenerative disc disease in the thoracic spine. Abdomen/Pelvis: Organs: The liver, gallbladder, pancreas, spleen, adrenals, kidneys, aorta and IVC appear stable. Aorta is calcified but nonaneurysmal. GI/Bowel: No evidence of bowel obstruction, perforation or thickening. Pelvis: Urinary bladder appears unremarkable. Status post prostatectomy. No evidence of pelvic lymphadenopathy or other findings. No evidence of local recurrence. Peritoneum/Retroperi toneum: No evidence of retroperitoneal lymphadenopathy. No evidence of hernia. Bones/Soft Tissues: No evidence of sclerotic, lytic or destructive changes. No obvious soft tissue abnormality. IMPRESSION: 1. No evidence of metastatic disease in the chest, abdomen or pelvis. No evidence of sclerotic bony lesions. 2. No active chest disease. 3. No active disease in the abdomen or pelvis. Bowel loops demonstrate no significant abnormality. 4. Status post prostatectomy. No evidence of local recurrence. Interpreted by: Kylah Siddiqui MD Signed by: Kylah Siddiqui MD 10/25/22 Final result Normal [facility] BUN & Creatinineon 3 Creatinine [Mass/Vol] 0.87 mg/dL 0.70 - 1.20 mg/dL [facility] GFR/1.73 sq M.predicted MDRD (S/P/Bld) [Vol rate/Area] - PINF [facility] Comment on above: These results are not intended for use in patients <18 years of age. eGFR results are calculated without a race factor using the 2020 CKD-EPI equation. Careful clinical correlation is recommended, particularly when comparing to results calculated using previous equations. The CKD-EPI equation is less accurate in patients with extremes of muscle mass, extra-renal metabolism of creatine, excessive creatine ingestion, or following therapy that affects renal tubular secretion. Urea nitrogen [Mass/Vol] 13 mg/dL 8 - 23 mg/dL [facility] BUN + Creatinineon 3 Creatinine [Mass/Vol] 0.87 mg/dL Normal 0.70-1.20 [facility] Comment on above: Performed By: #### RADHA MORAN #### [facility] [address] [place] [address] [place] Buffer: Tomy Steven MD GFR/1.73 sq M.predicted among non-blacks MDRD (S/P/Bld) [Vol rate/Area] mL/min/{1.73_m2} Normal >60 [facility] Comment on above: Result Comment: These results are not intended for use in patients <18 years of age. eGFR results are calculated without a race factor using the 2020 CKD-EPI equation. Careful clinical correlation is recommended, particularly when comparing to results calculated using previous equations. The CKD-EPI equation is less accurate in patients with extremes of muscle mass, extra-renal metabolism of creatine, excessive creatine ingestion, or following therapy that affects renal tubular secretion. Performed By: #### U RADHA GUERRIER #### [facility] [address] [place] [address] [place] Buffer: Tomy Steven MD Urea nitrogen [Mass/Vol] 13 mg/dL Normal 8-23 [facility] Comment on above: Performed By: #### U RADHA GUERRIER #### [facility] [address] [place] [address] [place] Buffer: Tomy Steven MD PSA, [employer] 10-22-2022 Prostatic Spec. Ag <0.02 Normal <4.1 [facility] Comment on above: Result Comment: The Mac ECLIA assay is used. Results obtained with different assay methods cannot be used interchangeably. Performed By: #### U CHEY, RADHA #### [facility] [address] [place] [address] [place] Buffer: Tomy Steven MD [facility] CBC with Auto Differentialon 09-10-2022 Absolute Eos # 0.10 [facility] Absolute Immature Granulocyte 0.[address] [facility] Absolute Lymph # 3.59 [facility] Absolute [place] # 0.29 [facility] Basophils (Bld) [#/Vol] 0.05 10*3/uL [facility] Basophils/100 WBC (Bld) 1 % 0 - 2 % [facility] Eosinophils/100 WBC (Bld) 2 % 1 - 4 % [facility] Hematocrit (Bld) [Volume fraction] 31.6 % Low 40.7 - 50.3 % [facility] Hemoglobin (Bld) [Mass/Vol] 10.7 g/dL Low 13.0 - 17.0 g/dL [facility] Immature granulocytes/100 WBC (Bld) 1 % High [address] [facility] Interpretation and review of laboratory results Abnormal [facility] Lymphocytes/100 WBC (Bld) 75 % High 24 - 43 % [facility] MCH (RBC) [Entitic mass] 36.8 pg High 25.2 - 33.[address] [facility] MCHC (RBC) [Mass/Vol] 33.9 g/dL 28.4 - 34.8 g/dL [facility] MCV (RBC) [Entitic vol] 108.6 fL High 82.6 - 102.[address] [facility] Monocytes/100 WBC (Bld) 6 % 3 - 12 % B [facility] Morphology Porfirio (Bld) [Interp] ANISOCYTOSIS PRESENT [facility] NRBC Automated 0.0 0.0 per [address] [facility] Platelet distribution width (Bld) [Ratio] 16.5 % High 11.8 - 14.4 % [facility] Platelet mean volume (Bld) [Entitic vol] 10.1 fL 8.1 - 13.[address] [facility] Platelets (Bld) [#/Vol] 177 10*3/uL [facility] RBC (Bld) [#/Vol] 2.91 10*6/uL Low 4.21 - 5.7 7 m/uL [facility] Segmented neutrophils/100 WBC (Bld) 15 % Low 36 - 65 % [facility] Segs Absolute 0.[address] [facility] WBC (Bld) [#/Vol] 4.8 10*3/uL [facility] Immunoglobulin Panel (IgG, I gA, IgM)on 09-10-2022 IgA [Mass/Vol] 84 mg/dL 70 - 400 mg/dL [facility] IgG [Mass/Vol] 979 mg/dL 700 - 1600 mg/dL [facility] IgM [Mass/Vol] 72 mg/dL 40 - 230 mg/dL [facility] [place]/Lambda Quantitative Fr ee Light Chains, Serumon 09-10-2022 Free [place]/Lambda Ratio 1.31 0.26 - 1.[address] [facility] Immunoglobulin light chains.kappa.free (S) [Mass/Vol] 2.15 mg/dL High 0.37 - 1.94 mg/dL [facility] Immunoglobulin light chains.lambda.free [Mass/Vol] 1.64 mg/dL 0.57 - 2.63 mg/dL [facility] Interpretation and review of laboratory results Abnormal [facility] Lactate Dehydrogenaseon 08-21 Cholesterol in LDL [Mass/Vol] 240 U/L High 135 - 225 U/L [facility] Interpretation and review of laboratory results Abnormal [facility] PSA Screeningon 09-10-[address] [facility] Reticulocyteson 09-10-2022 Absolute Retic # 0.051 [facility] Immature Retic Fract 25.6 % High 2.7 - 18.3 % [facility] Interpretation and review of laboratory results Abnormal [facility] Retic Hemoglobin 39.2 pg High 28.2 - 35.[address] [facility] Reticulocytes/100 RBC (Bld) 1.8 % 0.5 - 1.9 % [facility] Sedimentation Rateon 023 ESR (Bld) [Velocity] 1 mm/h [facility] XR CHEST (2 VW)on 03-26-2022 Mild senescent changes compatible with the age of the patient. Possible COPD. No evidence of acute cardiopulmonary process. [facility] EXAMINATION: TWO XRAY VIEWS OF THE CHEST 03/26/2022 11:19 am COMPARISON: Plain film imaging of the chest March 05, 2021 and July 07, 2019. HISTORY: ORDERING SYSTEM PROVIDED HISTORY: Atrial fibrillation, unspecified type (HCC) TECHNOLOGIST PROVIDED HISTORY: monitoring AFib FINDINGS: The heart is within limits of normal for size. Some calcification is present within a mildly redundant aorta. No evidence of pneumothorax, pleural effusion, infiltrate, or abnormal lung mass. Central pulmonary vascularity appears normal. Degenerative spondylitic changes are present in the spine. Some degenerative changes are present in the shoulders. MHBonnie Sandoval MD - 03/26/2022 EXAMINATION: TWO XRAY VIEWS OF THE CHEST 03/26/2022 11:19 am COMPARISON: Plain film imaging of the chest March 05, 2021 and July 07, 2019. HISTORY: ORDERING SYSTEM PROVIDED HISTORY: Atrial fibrillation, unspecified type (HCC) TECHNOLOGIST PROVIDED HISTORY: monitoring AFib FINDINGS: The heart is within limits of normal for size. Some calcification is present within a mildly redundant aorta. No evidence of pneumothorax, pleural effusion, infiltrate, or abnormal lung mass. Central pulmonary vascularity appears normal. Degenerative spondylitic changes are present in the spine. Some degenerative changes are present in the shoulders. IMPRESSION: Mild senescent changes compatible with the age of the patient. Possible COPD. No evidence of acute cardiopulmonary process. [employer] Work Phone: Radiology Study observation (narrative) [employer] Work Phone: XR CHEST (2 VW)Ordered By: Sher Coello on 03-26-2022 [employer] Work Phone: [facility] 03-10-2022 Hematocrit (Bld) [Volume fraction] 32.0 % Low 40.7 - 50.3 % [employer] Hemoglobin (Bld) [Mass/Vol] 10.5 g/dL Low 13 - 17 g/dL [employer] Interpretation and review of laboratory results Abnormal [employer] MCH (RBC) [Entitic mass] 35.4 pg High 25.2 - 33.5 pg [employer] MCHC (RBC) [Mass/Vol] 32.8 g/dL 28.4 - 34.8 g/dL [employer] MCV (RBC) [Entitic vol] 107.7 fL High 82.6 - 102.9 fL [employer] NRBC Automated 0.0 0.0 per 100 WBC [employer] Platelet distribution width (Bld) [Ratio] 15.9 % High 11.8 - 14.4 % [employer] Platelet mean volume (Bld) [Entitic vol] 10.7 fL 8.1 - 13.[address] [facility] Platelets (Bld) [#/Vol] 174 10*3/uL [facility] RBC (Bld) [#/Vol] 2.97 10*6/uL Low 4.21 - 5.7 7 m/uL [facility] WBC (Bld) [#/Vol] 5.3 10*3/uL [facility] Comprehensive Metabolic Pane lissa 03-10-2022 Albumin [Mass/Vol] 4.2 g/dL 3.5 - 5.2 g/dL [facility] Albumin/Globulin [Mass ratio] 2.0 {ratio} 1 - 2.[address] [facility] ALP (Bld) [Catalytic activity/Vol] 70 U/L 40 - 129 U/L [facility] ALT [Catalytic activity/Vol] 29 U/L 5 - 41 U/L [facility] Anion gap [Moles/Vol] 9 mmol/L 9 - 17 mmol/L [facility] AST [Catalytic activity/Vol] 28 U/L NINF - 40 U/L [facility] Bilirubin [Mass/Vol] 0.57 mg/dL 0.3 - 1 .2 mg/dL [facility] Calcium [Mass/Vol] 8.8 mg/dL 8.6 - 10. 4 mg/dL [facility] Chloride [Moles/Vol] 107 mmol/L 98 - 10 7 mmol/L [facility] CO2 [Moles/Vol] 23 mmol/L 20 - 31 mmol/L [facility] Creatinine [Mass/Vol] 0.67 mg/dL Low 0.7 - 1.2 mg/dL [facility] Free PSA/Total PSA [Mass fraction] 6.3 g/dL Low 6.4 - 8.3 g/dL [facility] GFR >60 60 - PI NF mL/min [facility] GFR Non- >60 60 - PINF mL/min [facility] GFR/1.73 sq M.predicted MDRD (S/P/Bld) [Vol rate/Area] [facility] Comment on above: Average GFR for 70 o r more years old: 75 mL/min/1.73sq m Chronic Kidney Disease: <60 mL/min/1.73sq m Kidney failure: <15 mL/min/1.73sq m eGFR calculated using average adult body mass. Additional eGFR calculator available at: http://www.ClariFI/multiple_crcl_2012.htm Glucose [Mass/Vol] 89 mg/dL 70 - 99 mg/dL [facility] Potassium [Moles/Vol] 4.1 mmol/L 3.7 - 5.3 mmol/L [facility] Sodium [Moles/Vol] 139 mmol/L 135 - 144 mmol/L [facility] Urea nitrogen (BldV) [Mass/Vol] 15 mg/dL 8 - 23 mg/dL [facility] Lipid Panelon 03-10-2022 Cholesterol [Mass/Vol] 106 mg/dL NINF - 200 mg/dL [facility] Comment on above: Cholesterol Guidelines: <200 Desirable 200-240 Borderline >240 Undesirable Cholesterol in HDL [Mass/Vol] 35 mg/dL Low 40 - PINF mg/dL [facility] Comment on above: HDL Guidelines: <40 Undesirable 40-59 Borderline >59 Desirable Cholesterol in LDL [Mass/Vol] 36 mg/dL 0 - 130 mg/dL [facility] Comment on above: LDL Guidelines: <100 Desirable 100-129 Near to/above Desirable 130-159 Borderline >159 Undesirable Direct (measured) LDL and calculated LDL are not interchangeable tests. Cholesterol.total/Anu sterol in HDL [Mass ratio] 3 {ratio} NINF - [address] [facility] Triglyceride [Mass/Vol] 175 mg/dL High NINF - 150 mg/dL [facility] Comment on above: Triglyceride Guidelines: <150 Desirable 150-199 Borderline 200-499 High >499 Very high Based on AHA Guidelines for fasting triglyceride, April 2012. No Panel Informationon 03-10 Interpretation and review of laboratory results Abnormal [facility] TSHon 03-10-2022 TSH Qn 1.22 m[IU]/L [facility] Echo 2D w doppler w color co mpleteon 02-11-2022 [facility] Transthoracic Echocardiography Report (TTE) Patient Name SUKHJINDER Date of Study 02/11/2022 TOMMY Stanford Date of 1950 Gender Male Age 72 year(s) Race Room Number Height: 68 inch, 172.72 cm Corporate ID [id number] Weight: 173 pounds, 78.5 kg # Patient Acct [id number] BSA: 1.92 m^2 BMI: 26.3 kg/m^2 # MR # [id number] [employer] Equipment Operator Pia Cohn Interpreting Physician Taiwo Guaman Referring Nurse Practitioner Interpreting Referring Physician Taiwo Guaman Type of Study TTE procedure:2D Echocardiogram, M-Mode, Doppler, Color Doppler. Procedure Date Date: 02/11/2022 Start: 02:06 PM Study Location: [facility] Indications:Atrial fibrillation. History / Tech. Comments: Dx: PAF Hx: HTN, hyperlipidemia Patient Status: Outpatient Height: 68 inches Weight: 173 pounds BSA: 1.92 m^2 BMI: 26.3 kg/m^2 BP: 112/56 mmHg CONCLUSIONS Summary Global left ventricular systolic function appears preserved with an estimated ejection fraction of 60%. The left ventricular cavity size is within normal limits and the left ventricular wall thickness is mildly increased. Abnormal septal motion could be secondary to bindle branch block. The left atrium is moderately dilated (34-39) with a left atrial volume index of 34 ml/m2. Aortic leaflet calcification with mild aortic stenosis with a mean gradient of 11 mmHg. Moderate aortic regurgitation was seen. Mild mitral and tricuspid regurgitation. Mild pulmonary hypertension with an estimated right ventricular systolic pressure of 31 mmHg. Evidence of mild diastolic dysfunction is seen. Compared to the previous study of 01/23/2021, no significant change was seen. Signature FINDINGS Left Atrium The left atrium is moderately dilated (34-39) with a left atrial volume index of 34 ml/m2. Left Ventricle Global left ventricular systolic function appears preserved with an estimated ejection fraction of 60%. The left ventricular cavity size is within normal limits and the left ventricular wall thickness is mildly increased. Abnormal septal motion could be secondary to bindle branch block. Right Atrium Right atrium is normal in size. Right Ventricle Normal right ventricular size and function. Mitral Valve Normal mitral valve structure with mild mitral regurgitation. Aortic Valve Aortic leaflet calcification with mild aortic stenosis with a mean gradient of 11 mmHg. Moderate aortic regurgitation was seen. Tricuspid Valve Mild pulmonary hypertension with an estimated right ventricular systolic pressure of 31 mmHg. Mild tricuspid regurgitation. Pulmonic Valve Pulmonic valve not well visualized, but Doppler velocities are normal. Pericardial Effusion No significant pericardial effusion is seen. Miscellaneous Evidence of mild diastolic dysfunction is seen. Normal aortic root dimension. M-mode / 2D Measurements & Calculations: LVIDd:4.6 cm(3.7 - 5.6 cm) Diastolic Volume:97.44 ml LVIDs:4.13 cm(2.2 - 4.0 cm) Systolic Volume:39.7 ml IVSd:1.01 cm(0.6 - 1.1 cm) Aortic Root:2.92 cm(2.0 - 3.7 cm) LVPWd:1.1 cm(0.6 - 1.1 cm) LA Dimension: 2.88 cm(1.9 - 4.0 cm) Fractional Shortenin.22 % LA volume/Index: 65.2 ml /34m^2 Calculated LVEF (%): 59.26 % AV Cusp Separation: 1.72 cm LVOT:2 cm Mitral: Aortic Valve Area (P1/2-Time): 3.19 cm^2 Peak Velocity: 2.28 m/s Peak E-Wave: 0.91 m/s Mean Velocity: 1.57 m/s Peak A-Wave: 1.08 m/s Peak Gradient: 20.79 mmHg E/A Ratio: 0.85 Mean Gradient: 11.23 mmHg Peak Gradient: 3.31 mmHg Acceleration Time: 93.93 msec P1/2t: 68.9 msec Area (continuity): 1.57 cm^2 AV VTI: 46.88 cm Tricuspid: Pulmonic: Estimated RVSP: 30.88 mmHg Peak TR Velocity: 2.64 m/s Peak TR Gradient: 27.8784 mmHg Estimated RA Pressure: 3 mmHg (more content not included)... 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 Procedure Date Date: 02/11/2022 Start: 02:06 PM Study Location: [facility] Indications:Atrial fibrillation. History / Tech. Comments: Dx: PAF Hx: HTN, hyperlipidemia Patient Status: Outpatient Height: 68 inches Weight: 173 pounds BSA: 1.92 m^2 BMI: 26.3 kg/m^2 BP: 112/56 mmHg CONCLUSIONS Summary Global left ventricular systolic function appears preserved with an estimated ejection fraction of 60%. The left ventricular cavity size is within normal limits and the left ventricular wall thickness is mildly increased. Abnormal septal motion could be secondary to bindle branch block. The left atrium is moderately dilated (34-39) with a left atrial volume index of 34 ml/m2. Aortic leaflet calcification with mild aortic stenosis with a mean gradient of 11 mmHg. Moderate aortic regurgitation was seen. Mild mitral and tricuspid regurgitation. Mild pulmonary hypertension with an estimated right ventricular systolic pressure of 31 mmHg. Evidence of mild diastolic dysfunction is seen. Compared to the previous study of 01/23/2021, no significant change was seen. Signature - - - - FINDINGS Left Atrium The left atrium is moderately dilated (34-39) with a left atrial volume index of 34 ml/m2. Left Ventricle Global left ventricular systolic function appears preserved with an estimated ejection fraction of 60%. The left ventricular cavity size is within normal limits and the left ventricular wall thickness is mildly increased. Abnormal septal motion could be secondary to bindle branch block. Right Atrium Right atrium is normal in size. Right Ventricle Normal right ventricular size and function. Mitral Valve Normal mitral valve structure with mild mitral regurgitation. Aortic Valve Aortic leaflet calcification with mild aortic stenosis with a mean gradient of 11 mmHg. Moderate aortic regurgitation was seen. Tricuspid Valve Mild pulmonary hypertension with an estimated right ventricular systolic pressure of 31 mmHg. Mild tricuspid regurgitation. Pulmonic Valve Pulmonic valve not well visualized, but Doppler velocities are normal. Pericardial Effusion No significant pericardial effusion is seen. Miscellaneous Evidence of mild diastolic dysfunction is seen. Normal aortic root dimension. M-mode / 2D Measurements & Calculations: LVIDd:4.6 cm(3.7 - 5.6 cm) Diastolic Volume:97.44 ml LVIDs:4.13 cm(2.2 - 4.0 cm) Systolic Volume:39.7 ml IVSd:1.01 cm(0.6 - 1.1 cm) Aortic Root:2.92 cm(2.0 - 3.7 cm) LVPWd:1.1 cm(0.6 - 1.1 cm) LA Dimension: 2.88 cm(1.9 - 4.0 cm) Fractional Shortenin.22 % LA volume/Index: 65.2 ml /34m^2 Calculated LVEF (%): 59.26 % AV Cusp Separation: 1.72 cm LVOT:2 cm Mitral: Aortic Valve Area (P1/2-Time): 3.19 cm^2 Peak Velocity: 2.28 m/s Peak E-Wave: 0.91 m/s Mean Velocity: 1.57 m/s Peak A-Wave: 1.08 m/s Peak Gradient: 20.79 mmHg E/A Ratio: 0.85 Mean Gradient: 11.23 mmHg Peak Gradient: 3.31 mmHg Acceleration Time: 93.93 msec P1/2t: 68.9 msec Area (continuity): 1.57 cm^2 AV VTI: 46.88 cm Tricuspid: Pulmonic: Estimated RVSP: 30.88 mmHg Peak TR Velocity: 2.64 m/s Peak TR Gradient: 27.8784 mmHg Estimated RA Pressure: 3 mmHg Estimated PASP: 30.88 mmHg Diastology / Tissue Doppler Lateral Wall E' velocity:0.11 m/s Lateral Wall E/E':7.46 [employer] Phone: [facility] [employer] Phone: XR CHEST (2 VW)Ordered By: Marta Velasquez on 03-05-2021 EXAMINATION: TWO XRAY VIEWS OF THE CHEST 03/05/2021 12:41 pm COMPARISON: Portable frontal view of the chest July 07, 2019 and May 19, 2016. HISTORY: ORDERING SYSTEM PROVIDED HISTORY: Atrial fibrillation, unspecified type (HCC) TECHNOLOGIST PROVIDED HISTORY: afib with multaq use The heart is within limits of normal for size. No evidence of pneumothorax, pleural effusion, infiltrate, or abnormal lung mass. Spondylitic changes are present in the vertebral endplates. Some degenerative changes are present in the visualized portions of the shoulders. The aorta is redundant. There is increased retrosternal clear space. FINDINGS: Senescent changes compatible with the age of the patient. No evidence of acute cardiopulmonary process. [employer] Phone: Oswaldo, [facility] Incoming Radiant Results From [employer] - 03/05/2021 3:06 PM EDT EXAMINATION: TWO XRAY VIEWS OF THE CHEST 03/05/2021 12:41 pm COMPARISON: Portable frontal view of the chest July 07, 2019 and May 19, 2016. HISTORY: ORDERING SYSTEM PROVIDED HISTORY: Atrial fibrillation, unspecified type (HCC) TECHNOLOGIST PROVIDED HISTORY: afib with multaq use The heart is within limits of normal for size. No evidence of pneumothorax, pleural effusion, infiltrate, or abnormal lung mass. Spondylitic changes are present in the vertebral endplates. Some degenerative changes are present in the visualized portions of the shoulders. The aorta is redundant. There is increased retrosternal clear space. FINDINGS: Senescent changes compatible with the age of the patient. No evidence of acute cardiopulmonary process. [employer] Phone: [employer] Phone: Comprehensive Metabolic Pane lOrdered By: Vin Velasquez on 02-27-2021 Albumin [Mass/Vol] 4.4 g/dL 3.5 - 5.2 g/dL [employer] Phone: Albumin/Globulin [Mass ratio] 1.9 {ratio} [employer] Phone: ALP (Bld) [Catalytic activity/Vol] 81 U/L 40 - 129 U/L [employer] Phone: ALT [Catalytic activity/Vol] 25 U/L 5 - 41 U/L [employer] Phone: Anion gap [Moles/Vol] 11 mmol/L 9 - 17 mmol/L [employer] Phone: AST [Catalytic activity/Vol] 23 U/L <40 [employer] Phone: Bilirubin [Mass/Vol] 0.73 mg/dL 0.3 - 1 .2 mg/dL [employer] Phone: Calcium [Mass/Vol] 9.3 mg/dL 8.6 - 10. 4 mg/dL [employer] Phone: Chloride [Moles/Vol] 106 mmol/L 98 - 10 7 mmol/L [employer] Phone: CO2 [Moles/Vol] 24 mmol/L 20 - 31 mmol/L [employer] Phone: Creatinine [Mass/Vol] 0.85 mg/dL 0.70 - 1.20 mg/dL [employer] Phone: Free PSA/Total PSA [Mass fraction] 6.7 g/dL 6.4 - 8.3 g/dL [employer] Phone: GFR >60 >60 mL/min [place] Phone: GFR Non- >60 >60 mL/min [employer] Phone: Glucose [Mass/Vol] 88 mg/dL 70 - 99 mg/dL [employer] Phone: Potassium [Moles/Vol] 4.3 mmol/L 3.7 - 5.3 mmol/L [employer] Phone: Sodium [Moles/Vol] 141 mmol/L 135 - 144 mmol/L [employer] Phone: Urea nitrogen (BldV) [Mass/Vol] 13 mg/dL 8 - 23 mg/dL [employer] Phone: Urea nitrogen/Creatinine (Bld) [Mass ratio] 15 [employer] Phone: [employer] Phone: Laboratory - Chemistry and C hemistry - challengeOrdered By: Vin Velasquez on 02-27-2021 GFR/1.73 sq M.predicted MDRD (S/P/Bld) [Vol rate/Area] [employer] Phone: Comment on above: Average GFR for 70 o r more years old: 75 mL/min/1.73sq m Chronic Kidney Disease: <60 mL/min/1.73sq m Kidney failure: <15 mL/min/1.73sq m eGFR calculated using average adult body mass. Additional eGFR calculator available at: http://www.[employer]/multiple_crcl_2012.htm Stage 1: Some kidney damage normal GFR Stage 2: Mild kidney damage GFR 60-89 Stage 3: Moderate kidney damage GFR 30-59 Stage 4: Severe kidney damage GFR 15-29 Stage 5: Severe kidney damage GFR <15 ESRD - chronic treatment by dialysis or transplant Echo 2D w doppler w color co mpleteOrdered By: Taiwo Guaman on 01-23-2021 [facility] Transthoracic Echocardiography Report (TTE) Patient Name SUKHJINDER Date of Study 01/23/2021 TOMMY T Date of 1950 Gender Male Age 71 year(s) Race Room Number Height: 68 inch, 172.72 cm Corporate ID [id number] Weight: 179 pounds, 81.2 kg # Patient Acct [id number] BSA: 1.95 m^2 BMI: 27.22 # kg/m^2 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 Procedure Date Date: 01/23/2021 Start: 09:08 AM Study Location: [facility] Indications:Atrial fibrillation. History / Tech. Comments: PAF PMHX: HTN Patient Status: Outpatient Height: 68 inches Weight: 179 pounds BSA: 1.95 m^2 BMI: 27.22 kg/m^2 BP: 129/67 mmHg CONCLUSIONS Summary Global left ventricular systolic function appears preserved with an estimated ejection fraction of >60%. The left ventricular cavity size is within normal limits and the left ventricular wall thickness is mildly increased. No definite specific wall motion abnormalities were identified. The left atrium is mildly dilated (29-33) with a left atrial volume index of 31 ml/m2. Aortic leaflets show calcification with Moderate aortic insufficiency. Mild aortic stenosis with mean gradient across the aortic valve of 13 mmHg. Mild tricuspid regurgitation. Mild pulmonary hypertension with estimated pulmonary artery systolic pressure of 33 mmHg. Evidence of moderate (grade II) diastolic dysfunction is seen. Compared to the previous study of 12/03/2019, Mild worsening of the aortic valve disease noted. consider repeat Echo in 6-12 months Signature FINDINGS Left Atrium The left atrium is mildly dilated (29-33) with a left atrial volume index of 31 ml/m2. Left Ventricle Global left ventricular systolic function appears preserved with an estimated ejection fraction of >60%. The left ventricular cavity size is within normal limits and the left ventricular wall thickness is mildly increased. No definite specific wall motion abnormalities were identified. Right Atrium Right atrium is normal in size. Right Ventricle Normal right ventricular size and function. Mitral Valve Normal mitral valve structure with trivial mitral regurgitation. Aortic Valve Aortic leaflets show calcification with Moderate aortic insufficiency. Mild aortic stenosis with mean gradient across the aortic valve of 13 mmHg. Tricuspid Valve Normal tricuspid valve structure with mild tricuspid regurgitation. Mild pulmonary hypertension with estimated pulmonary artery systolic pressure of 33 mmHg. Pulmonic Valve Pulmonic valve not well visualized but Doppler velocities are normal. Pericardial Effusion No significant pericardial effusion is seen. Miscellaneous Evidence of moderate (grade II) diastolic dysfunction is seen. Normal aortic root dimension. M-mode / 2D Measurements & Calculations: LVIDd:4.33 cm(3.7 - 5.6 cm) Diastolic Volume:81.08 ml LVIDs:2.91 cm(2.2 - 4.0 cm) Systolic Volume:24.71 ml IVSd:1.13 cm(0.6 - 1.1 cm) Aortic Root:3.17 cm(2.0 - 3.7 cm) LVPWd:1.12 cm(0.6 - 1.1 cm) LA Dimension: 4.12 cm(1.9 - 4.0 cm) Fractional Shortenin.79 % LA volume/Index: 60 ml /31m^2 Calculated LVEF (%): 69.52 % AV Cusp Separation: 1.4 cm LVOT:2.01 cm Mitral: Aortic Valve Area (P1/2-Time): 4.9 cm^2 Peak Velocity: 2.10 m/s Peak E-Wave: 1.00 m/s Mean Velocity: 1.49 m/s Peak Gradient: 17.68 mmHg Peak Gradient: 4.03 mmHg Mean Gradient: 13.41 mmHg P1/2t: 44.86 msec Acceleration Time: 55.25 msec Area (continuity): 2.09 cm^2 AV VTI: 42 cm (more content not included)... 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 Procedure Date Date: 01/23/2021 Start: 09:08 AM Study Location: [facility] Indications:Atrial fibrillation. History / Tech. Comments: PAF PMHX: HTN Patient Status: Outpatient Height: 68 inches Weight: 179 pounds BSA: 1.95 m^2 BMI: 27.22 kg/m^2 BP: 129/67 mmHg CONCLUSIONS Summary Global left ventricular systolic function appears preserved with an estimated ejection fraction of >60%. The left ventricular cavity size is within normal limits and the left ventricular wall thickness is mildly increased. No definite specific wall motion abnormalities were identified. The left atrium is mildly dilated (29-33) with a left atrial volume index of 31 ml/m2. Aortic leaflets show calcification with Moderate aortic insufficiency. Mild aortic stenosis with mean gradient across the aortic valve of 13 mmHg. Mild tricuspid regurgitation. Mild pulmonary hypertension with estimated pulmonary artery systolic pressure of 33 mmHg. Evidence of moderate (grade II) diastolic dysfunction is seen. Compared to the previous study of 12/03/2019, Mild worsening of the aortic valve disease noted. consider repeat Echo in 6-12 months Signature - - - - FINDINGS Left Atrium The left atrium is mildly dilated (29-33) with a left atrial volume index of 31 ml/m2. Left Ventricle Global left ventricular systolic function appears preserved with an estimated ejection fraction of >60%. The left ventricular cavity size is within normal limits and the left ventricular wall thickness is mildly increased. No definite specific wall motion abnormalities were identified. Right Atrium Right atrium is normal in size. Right Ventricle Normal right ventricular size and function. Mitral Valve Normal mitral valve structure with trivial mitral regurgitation. Aortic Valve Aortic leaflets show calcification with Moderate aortic insufficiency. Mild aortic stenosis with mean gradient across the aortic valve of 13 mmHg. Tricuspid Valve Normal tricuspid valve structure with mild tricuspid regurgitation. Mild pulmonary hypertension with estimated pulmonary artery systolic pressure of 33 mmHg. Pulmonic Valve Pulmonic valve not well visualized but Doppler velocities are normal. Pericardial Effusion No significant pericardial effusion is seen. Miscellaneous Evidence of moderate (grade II) diastolic dysfunction is seen. Normal aortic root dimension. M-mode / 2D Measurements & Calculations: LVIDd:4.33 cm(3.7 - 5.6 cm) Diastolic Volume:81.08 ml LVIDs:2.91 cm(2.2 - 4.0 cm) Systolic Volume:24.71 ml IVSd:1.13 cm(0.6 - 1.1 cm) Aortic Root:3.17 cm(2.0 - 3.7 cm) LVPWd:1.12 cm(0.6 - 1.1 cm) LA Dimension: 4.12 cm(1.9 - 4.0 cm) Fractional Shortenin.79 % LA volume/Index: 60 ml /31m^2 Calculated LVEF (%): 69.52 % AV Cusp Separation: 1.4 cm LVOT:2.01 cm Mitral: Aortic Valve Area (P1/2-Time): 4.9 cm^2 Peak Velocity: 2.10 m/s Peak E-Wave: 1.00 m/s Mean Velocity: 1.49 m/s Peak Gradient: 17.68 mmHg Peak Gradient: 4.03 mmHg Mean Gradient: 13.41 mmHg P1/2t: 44.86 msec Acceleration Time: 55.25 msec Area (continuity): 2.09 cm^2 AV VTI: 42 cm Tricuspid: Pulmonic: Estimated RVSP: 33.03 mmHg Peak TR Velocity: 2.74 m/s Peak TR Gradient: 30.0304 mmHg Estimated RA Pressure: 3 mmHg Estimated PASP: 33.03 mmHg Diastology / Tissue Doppler Lateral Wall E' velocity:0.12 m/s Lateral Wall E/E':8.15 [employer] Phone: [employer] Phone: CBCon 09-11-2020 Erythrocyte distribution width (RBC) [Ratio] 13.5 % 11.8 - 14.4 % [employer] Phone: Hematocrit (Bld) [Volume fraction] 43.1 % 40.7 - 50.3 % [employer] Phone: Hemoglobin (Bld) [Mass/Vol] 14.2 g/dL 13 - 17 g/dL [employer] Phone: MCH (RBC) [Entitic mass] 32.6 pg 25.2 - 33.5 pg [employer] Phone: MCHC (RBC) [Mass/Vol] 32.9 g/dL 28.4 - 34.8 g/dL [employer] Phone: MCV (RBC) [Entitic vol] 98.9 fL 82.6 - 102.9 fL [employer] Phone: Platelet mean volume (Bld) [Entitic vol] 10.1 fL 8.1 - 13.5 fL [employer] Phone: Platelets (Bld) [#/Vol] 192 10*3/uL [employer] Phone: RBC (Bld) [#/Vol] 4.36 10*6/uL 4.21 - 5.7 7 m/uL [employer] Phone: WBC (Bld) [#/Vol] 0.0 10*3/uL 0.0 per 10 0 WBC [employer] Phone: WBC (Bld) [#/Vol] 3.8 10*3/uL [employer] Phone: Comprehensive Metabolic Pane lissa 09-11-2020 Albumin [Mass/Vol] 4.1 g/dL 3.5 - 5.2 g/dL [employer] Phone: Albumin/Globulin [Mass ratio] 1.6 {ratio} [employer] Phone: ALP [Catalytic activity/Vol] 67 U/L 40 - 129 U/L [employer] Phone: ALT [Catalytic activity/Vol] 23 U/L 5 - 41 U/L [employer] Phone: Anion gap [Moles/Vol] 7 mmol/L Low 9 - 17 mmol/L [employer] Phone: AST [Catalytic activity/Vol] 24 U/L <40 [employer] Phone: Bilirubin Ql (U) 0.86 mg/dL 0.3 - 1.2 mg/dL [employer] Phone: Bun/Cre Ratio 16 [employer] Work Phone: Calcium [Mass/Vol] 9.1 mg/dL 8.6 - 10. 4 mg/dL [employer] Phone: Chloride [Moles/Vol] 108 mmol/L High 98 - 10 7 mmol/L [employer] Phone: CO2 [Moles/Vol] 27 mmol/L 20 - 31 mmol/L [employer] Phone: Creatinine [Mass/Vol] 0.91 mg/dL 0.7 - 1.2 mg/dL [employer] Phone: GFR >60 >60 mL/min [place] Phone: GFR Non- >60 >60 mL/min [employer] Phone: Glucose [Mass/Vol] 108 mg/dL High 70 - 99 mg/dL [employer] Phone: Interpretation and review of laboratory results Abnormal [employer] Phone: Potassium [Moles/Vol] 4.5 mmol/L 3.7 - 5.3 mmol/L [employer] Phone: Protein [Mass/Vol] 6.6 g/dL 6.4 - 8.3 g/dL [employer] Phone: Sodium [Moles/Vol] 142 mmol/L 135 - 144 mmol/L [employer] Phone: Urea nitrogen [Mass/Vol] 15 mg/dL 8 - 23 mg/dL [employer] Phone: Hemoglobin A1Con 09-11-2020 Glucose [Mass/Vol] 100 mg/dL [employer] Phone: Comment on above: The ADA and AACC rec ommend providing the estimated average glucose result to permit better patient understanding of their HBA1c result. HbA1c (Bld) [Mass fraction] 5.1 % 4 - 6 % [employer] Phone: Lipid Panelon 09-11-2020 Cholesterol [Mass/Vol] 123 mg/dL <200 [employer] Phone: Comment on above: Cholesterol Guidelines: <200 Desirable 200-240 Borderline >240 Undesirable Cholesterol in HDL [Mass/Vol] 46 mg/dL >40 [employer] Phone: Comment on above: HDL Guidelines: <40 Undesirable 40-59 Borderline >59 Desirable Cholesterol in LDL [Mass/Vol] 60 mg/dL 0 - 130 mg/dL [employer] Phone: Comment on above: LDL Guidelines: <100 Desirable 100-129 Near to/above Desirable 130-159 Borderline >159 Undesirable Direct (measured) LDL and calculated LDL are not interchangeable tests. Cholesterol in VLDL [Mass/Vol] NOT REPORTED 1 - 30 mg/dL [employer] Phone: Cholesterol.total/Anu sterol in HDL [Mass ratio] 2.7 {ratio} <5 [employer] Phone: Triglyceride [Mass/Vol] 84 mg/dL <150 M [employer] Phone: Comment on above: Triglyceride Guidelines: <150 Desirable 150-199 Borderline 200-499 High >499 Very high Based on AHA Guidelines for fasting triglyceride, April 2012. Metabolic Panelon 09-11-2020 GFR/1.73 sq M predicted among non-blacks MDRD (S/P/Bld) [Vol rate/Area] [employer] Phone: Comment on above: Average GFR for 70 o r more years old: 75 mL/min/1.73sq m Chronic Kidney Disease: <60 mL/min/1.73sq m Kidney failure: <15 mL/min/1.73sq m eGFR calculated using average adult body mass. Additional eGFR calculator available at: http://www.[employer]/multiple_crcl_2011.htm Stage 1: Some kidney damage normal GFR Stage 2: Mild kidney damage GFR 60-89 Stage 3: Moderate kidney damage GFR 30-59 Stage 4: Severe kidney damage GFR 15-29 Stage 5: Severe kidney damage GFR <15 ESRD - chronic treatment by dialysis or transplant TSHon 09-11-2020 TSH Qn 1.45 m[IU]/L [employer] Phone: CBC Auto DifferentialOrdered By: Irvin Felix on 07-07-2019 Absolute Eos # 0.81 [facility] Work Phone: Absolute Immature Granulocyte 0.03 [employer] Work Phone: Absolute Lymph # 1.[address] [facility] Work Phone: Absolute [place] # 0.61 [facility] Work Phone: Basophils (Bld) [#/Vol] 10*3/uL M [employer] Phone: Basophils/100 WBC (Bld) 0 % 0 - 2 % M [employer] Phone: Differential Type NOT REPORTED [employer] Phone: Eosinophils/100 WBC (Bld) 15 % High 1 - 4 % [employer] Phone: Erythrocyte distribution width (RBC) [Ratio] 13.1 % 11.8 - 14.4 % [employer] Phone: Hematocrit (Bld) [Volume fraction] 43.6 % 40.7 - 50.3 % [employer] Phone: Hemoglobin (Bld) [Mass/Vol] 14.5 g/dL 13 - 17 g/dL [employer] Phone: Immature granulocytes/100 WBC (Bld) 1 % High 0 [employer] Phone: Interpretation and review of laboratory results Abnormal [employer] Phone: Lymphocytes/100 WBC (Bld) 24 % 24 - 43 % [employer] Phone: MCH (RBC) [Entitic mass] 33.1 pg 25.2 - 33.5 pg [employer] Phone: MCHC (RBC) [Mass/Vol] 33.3 g/dL 28.4 - 34.8 g/dL [employer] Phone: MCV (RBC) [Entitic vol] 99.5 fL 82.6 - 102.9 fL [employer] Phone: Monocytes/100 WBC (Bld) 11 % 3 - 12 % [facility] Phone: NRBC Automated 0.0 0.0 per 100 WBC [employer] Phone: Platelet Estimate NOT REPORTED [employer] Phone: Platelet mean volume (Bld) [Entitic vol] 9.8 fL 8.1 - 13.5 fL [employer] Phone: Platelets (Bld) [#/Vol] 214 10*3/uL [employer] Phone: RBC (Bld) [#/Vol] 4.38 10*6/uL 4.21 - 5.7 7 m/uL [employer] Work Phone: RBC morphology finding Nom (Bld) NOT REPORTED [employer] Work Phone: Segmented neutrophils/100 WBC (Bld) 49 % 36 - 65 % [employer] Work Phone: Segs Absolute 2.75 [employer] Work Phone: WBC (Bld) [#/Vol] 5.6 10*3/uL [employer] Work Phone: WBC Morphology NOT REPORTED [employer] Work Phone: Comprehensive Metabolic Pane l w/ Reflex to MGOrdered By: Irvin Felix on 07-07-2019 Albumin [Mass/Vol] 4.2 g/dL 3.5 - 5.2 g/dL [employer] Phone: Albumin/Globulin [Mass ratio] 1.6 {ratio} [employer] Phone: ALP [Catalytic activity/Vol] 62 U/L 40 - 129 U/L [employer] Phone: ALT [Catalytic activity/Vol] 27 U/L 5 - 41 U/L [employer] Phone: Anion gap [Moles/Vol] 8 mmol/L Low 9 - 17 mmol/L [employer] Phone: AST [Catalytic activity/Vol] 26 U/L <40 [employer] Phone: Bilirubin [Mass/Vol] 0.51 mg/dL 0.3 - 1 .2 mg/dL [employer] Phone: Bun/Cre Ratio 19 [employer] Work Phone: Calcium [Mass/Vol] 9.4 mg/dL 8.6 - 10. 4 mg/dL [employer] Phone: Chloride [Moles/Vol] 106 mmol/L 98 - 10 7 mmol/L [employer] Phone: CO2 [Moles/Vol] 26 mmol/L 20 - 31 mmol/L [employer] Phone: Creatinine [Mass/Vol] 0.84 mg/dL 0.7 - 1.2 mg/dL [employer] Phone: GFR >60 >60 mL/min [place] Phone: GFR Comment [employer] Phone: Comment on above: Average GFR for 70 o r more years old: 75 mL/min/1.73sq m Chronic Kidney Disease: <60 mL/min/1.73sq m Kidney failure: <15 mL/min/1.73sq m eGFR calculated using average adult body mass. Additional eGFR calculator available at: [email or web address] GFR Non- >60 >60 mL/min [employer] Phone: GFR Staging [employer] Phone: Comment on above: Stage 1: Some kidney damage normal GFR Stage 2: Mild kidney damage GFR 60-89 Stage 3: Moderate kidney damage GFR 30-59 Stage 4: Severe kidney damage GFR 15-29 Stage 5: Severe kidney damage GFR <15 ESRD - chronic treatment by dialysis or transplant Glucose [Mass/Vol] 100 mg/dL High 70 - 99 mg/dL [employer] Phone: Interpretation and review of laboratory results Abnormal [employer] Phone: Potassium [Moles/Vol] 3.8 mmol/L 3.7 - 5.3 mmol/L [employer] Phone: Protein [Mass/Vol] 6.9 g/dL 6.4 - 8.3 g/dL [employer] Phone: Sodium [Moles/Vol] 140 mmol/L 135 - 144 mmol/L [employer] Phone: Urea nitrogen [Mass/Vol] 16 mg/dL 8 - 23 mg/dL [employer] Phone: LipaseOrdered By: Irvin cano on 07-07-2019 Lipase [Catalytic activity/Vol] 15 U/L 13 - 60 U/L [employer] Phone: Protime-INROrdered By: Irvin Felix on 07-07-2019 INR Coag (PPP) [Relative time] 1.1 {INR} [employer] Work Phone: PT Coag (PPP) [Time] 10.9 s [employer] Phone: TroponinOrdered By: Irvin rey on 07-07-2019 Troponin Interp [facility] Work Phone: Comment on above: Reference Range: <0.03 Within reference range. 0.03-0.09 Possible myocardial damage. Repeat at appropriate intervals to rule out chronic elevation. >= 0.10 Indicative of myocardial damage. Patients with high levels of Biotin oral intake (i.e >5mg/day) may have falsely decreased Troponin T levels. Samples collected within 8 hours of biotin intake may require additional information for diagnosis. Troponin T <0.03 <0.03 ng/mL [employer] Phone: Comment on above: Troponin T results c annot be compared to Troponin-I results. Troponin, High Sensitivity NOT REPORTED 0 - 22 ng/L [employer] Phone: XR CHEST PORTABLEOrdered By: Irvin Felix on 07-07-2019 No acute process. [employer] [facility] Work Phone: EXAMINATION: ONE XRAY VIEW OF THE CHEST 07/07/2019 5:47 pm COMPARISON: 05/19/2016 HISTORY: ORDERING SYSTEM PROVIDED HISTORY: CP TECHNOLOGIST PROVIDED HISTORY: CP FINDINGS: The lungs are without acute focal process. There is no effusion or pneumothorax. The cardiomediastinal silhouette is stable. The osseous structures are stable. [employer] Work Phone: Oswaldo, Mhpn Incoming Radiant Results From [employer] - 07/07/2019 5:56 PM EST EXAMINATION: ONE XRAY VIEW OF THE CHEST 07/07/2019 5:47 pm COMPARISON: 05/19/2016 HISTORY: ORDERING SYSTEM PROVIDED HISTORY: CP TECHNOLOGIST PROVIDED HISTORY: CP FINDINGS: The lungs are without acute focal process. There is no effusion or pneumothorax. The cardiomediastinal silhouette is stable. The osseous structures are stable. IMPRESSION: No acute process. [employer] Work Phone: Vital Signs Date Time Vital Sign Value Performing Clinician Faci lity 07-07-2019 18:40-0500 Diastolic blood pressure 91 mm[Hg] Irvin Felix MD Work Phone: [employer] Work Phone: 07-07-2019 18:40-0500 Heart rate 52 /min Irvin Felix MD Work Phone: [employer] Work Phone: 07-07-2019 18:40-0500 Systolic blood pressure 175 mm[Hg] Irvin Felix MD Work Phone: [employer] Work Phone: 07-07-2019 18:31-0500 SaO2% (BldA) [Mass fraction] 95 % Irvin Felix MD Work Phone: [employer] Work Phone: 07-07-2019 17:44-0500 Respiratory rate 16 /min Irvin Felix MD Work Phone: [employer] Work Phone: 07-07-2019 17:06-0500 Body mass index (BMI) [Ratio] 25.85 kg/m2 Irvin Felix MD Work Phone: [employer] Work Phone: 07-07-2019 17:06-0500 Body temperature 97.81 [degF] Irvin Felix MD Work Phone: [employer] Work Phone: 07-07-2019 17:06-0500 Body weight 77.11 kg Irvin Felix MD Work Phone: [facility] Work Phone: Encounters Encounter Date Encounter Type Care Provider Facility Start: 09-23-2023 End: 09-24-2023 [facility] Start: 09-11-2023 End: 09-12-2023 [facility] Start: 09-02-2023 Bamboo flowsheet Bonnie Dhruv [facility] CCC-A Work Phone: [facility] Start: 09-02-2023 Bamboo flowsheet Bonnie Dhruv [facility] CCC-A Work Phone: [facility] Start: 09-02-2023 End: 09-02-2023 Clinical Support Bonnie Bartlett Chad CCC-A Work Phone: [facility] Comment on above: 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); Right chronic serous otitis media Start: 08-31-2023 End: 09-01-2023 [facility] Start: 08-31-2023 End: 08-31-2023 Subsequent hospital visit by physician Vin Barber CNP Work Phone: [facility] Comment on above: Prostate cancer (HCC ); Macrocytic anemia; Adult T-cell leukemia/lymphoma, 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); Mature NK/t-cell lymphoma, unspecified body region, unspecified mature NK/t-cell lymphoma type (HCC); Paroxysmal atrial fibrillation (HCC); Essential hypertension, benign; Neutropenia, unspecified type (HCC); Abnormal finding of blood chemistry, unspecified Start: 08-11-2023 End: 08-16-2023 ambulatory TAIWO GUAMAN [facility] Start: 08-07-2023 End: 08-10-2023 ambulatory FRITZ BUSCH [facility] Start: 08-07-2023 End: 08-10-2023 Encounter for other preprocedural examination FRITZ LASALVADORALECIA [facility] Start: 08-06-2023 End: 08-07-2023 ambulatory VIN ERICK [facility] Start: 05-04-2023 End: 05-05-2023 ambulatory [facility] Start: 03-09-2023 End: 03-10-2023 ambulatory [facility] Start: 01-21-2023 End: 01-22-2023 ambulatory [facility] Start: 01-21-2023 End: 01-21-2023 Subsequent hospital visit by physician Vin Velasquez APRN - DAREN Work Phone: [email or web address] [facility] Comment on above: Neutropenia, unspeci fied type (HCC) Start: 10-22-2022 End: 10-25-2022 ambulatory [facility] Start: 10-22-2022 End: 10-22-2022 Subsequent hospital visit by physician Vin Velasquez APRN - TOOL LAPPER HAND Work Phone: [facility] Laboratory Comment on above: Other specified type of non-Hodgkin lymphoma, unspecified body region (HCC); Neutropenia, unspecified type (HCC); Prostate cancer (HCC) Start: 09-10-2022 End: 09-10-2022 Subsequent hospital visit by physician Vin Velasquez APRN - DAREN Work Phone: [facility] Laboratory Comment on above: Macrocytic anemia; Lymphocytosis; Neutropenia, unspecified type (HCC); Essential hypertension, benign; Atrial fibrillation, unspecified type (HCC); Screening for prostate cancer; Abnormal finding of blood chemistry, unspecified Start: 03-26-2022 End: 03-28-2022 Subsequent hospital visit by physician Missy Vuong [address] [place] [address] Radiology Comment on above: Atrial fibrillation, unspecified type (HCC) Start: 03-10-2022 End: 03-10-2022 Subsequent hospital visit by physician Vin Velasquez APRN - TOOL LAP[employer] Work Phone: [facility] DRAW Comment on above: Essential hypertensi on, benign; Atrial fibrillation, unspecified type (HCC); Screening for prostate cancer; Abnormal finding of blood chemistry, unspecified Start: 02-11-2022 End: 02-11-2022 Subsequent hospital visit by physician [facility] Echo Room [facility] Echocardiography Comment on above: Paroxysmal atrial fi brillation (HCC); Essential hypertension Start: 03-20-2021 End: 03-20-2021 Subsequent hospital visit by physician [facility] Pulmonary Function Room [facility] PFT Comment on above: Atrial fibrillation, unspecified type (HCC); Essential hypertension, benign Start: 03-05-2021 End: 03-07-2021 Subsequent hospital visit by physician [facility] Xr Dr Room [facility] Radiology Comment on above: Atrial fibrillation, unspecified type (HCC) Start: 02-27-2021 End: 02-27-2021 Subsequent hospital visit by physician Vin Velasquez CLOTH PRINTER HELPER - [employer] Work Phone: [facility] Laboratory Comment on above: Essential hypertensi on, benign Start: 01-23-2021 End: 01-23-2021 Subsequent hospital visit by physician [facility] Echo Room [facility] Echocardiography Comment on above: Paroxysmal atrial fi brillation (HCC); Essential hypertension Start: 09-11-2020 End: 09-11-2020 Subsequent hospital visit by physician Vin Velasquez [facility] Laboratory Comment on above: Paroxysmal atrial fi brillation (HCC); Encounter for screening for malignant neoplasm of prostate ; Essential hypertension, benign; Abnormal finding of blood chemistry, unspecified Start: 01-02-2020 End: 01-02-2020 Subsequent hospital visit by physician [facility] Echo Room [facility] Echocardiography Comment on above: PAF (paroxysmal atri al fibrillation) (HCC); Essential hypertension Start: 07-07-2019 End: 07-07-2019 Emergency department patient visit Irvin Felix MD Work Phone: [facility] ED Comment on above: Epistaxis (Primary D x); Essential hypertension Procedures Date Procedure Procedure Detail Performing Clinician Start: 09-02-2023 AUDITORY FUNCTION TESTS Bonnie Bonilla [facility] Work Phone: Start: 08-31-2023 End: 08-31-2023 Comprehensive metabolic panel Narendra Tatum MD Work Phone: Start: 01-22-2023 Blood count hemoglobin NARENDRA TATUM Comment on above: Performed By: #### C BCCT, CP #### [facility] [employer] [address] [place] [address] [employer]: Cristopher Cornell MD Start: 01-21-2023 Comprehensive metabo lic panel Narendra Tatum MD Work Phone: Start: 10-22-2022 PSA screening Vin hickey CLOTH PRINTER HELPER - [employer] Work Phone: Comment on above: The Mac ECLIA as say is used. Results obtained with different assay methods cannot be used interchangeably. Start: 10-22-2022 Assay of prostate sp ecific antigen complexed Chilo Álvarez MD Work Phone: Start: 09-10-2022 PSA screening Vin Marleni hickey CLOTH PRINTER HELPER - [employer] Work Phone: Comment on above: The Mac ECLIA as say is used. Results obtained with different assay methods cannot be used interchangeably. Start: 09-10-2022 Lactate dehydrogenase ldh Narendra Tatum MD Work Phone: Start: 03-26-2022 Radiologic exam ches t 2 views Vin Quezadamerman CLOTH PRINTER HELPER - [employer] Work Phone: Start: 03-10-2022 Comprehensive metabo lic panel Vin Velasquez CLOTH PRINTER HELPER - [employer] Work Phone: Start: 03-10-2022 Lipid panel Vin Velasquez CLOTH PRINTER HELPER - [employer] Work Phone: Start: 02-11-2022 Echo tthrc r-t 2d w/wom-mode compl spec&colr d Taiwo Guaman MD Work Phone: Start: 03-20-2021 Lung differential function Vin Zaragoza Velasquez CLOTH PRINTER HELPER - [employer] Work Phone: Start: 03-05-2021 Radiologic exam ches t 2 views Vin Zaragoza Ron CLOTH PRINTER HELPER - [employer] Work Phone: Start: 02-27-2021 Comprehensive metabo lic panel Vin Velasquez CLOTH PRINTER HELPER - [employer] Work Phone: Start: 01-23-2021 Echo tthrc r-t 2d w/wom-mode compl spec&colr d Taiwo Guaman MD Work Phone: Start: 09-11-2020 [object Object] Vin setve Comment on above: The Mac ECLIA as say is used. Results obtained with different assay methods cannot be used interchangeably. Start: 09-11-2020 Assay of thyroid stimulating hormone tsh Vin Quezadamerman Work Phone: Start: 09-11-2020 Blood count complete automated Vin Velasquez Work Phone: Start: 09-11-2020 Comprehensive metabo lic panel Vin Velasquez Work Phone: Start: 09-11-2020 Hemoglobin glycosylated a1c Vin Velasquez Work Phone: Start: 09-11-2020 Lipid panel Vin Velasquez Work Phone: Start: 09-11-2020 PSA screening Vin Velasquez Work Phone: Start: 07-07-2019 Radiologic exam ches t single view Irvin Felix MD Work Phone: Start: 07-07-2019 Assay of lipase Irvin quinones MD Work Phone: Start: 07-07-2019 Ecg routine ecg w/le ast 12 lds w/i&r Irvin Felix MD Work Phone: Start: 03-02-2018 Colonoscopy Mth Room Plan of Treatment Date Care Activity Detail Author Start: 12-05-2031 DTaP/Tdap/Td vaccine (2 - Td or Tdap) DTaP/Tdap/Td vaccine (2 - Td or Tdap) [facility] Start: 03-02-2028 Colon cancer screen colonoscopy Colon cancer screen colonoscopy [facility] Work Phone: Start: 03-02-2028 Screening for malign ant neoplasm of colon [facility] Start: 05-29-2024 Depression Monitoring Depression Mon itoring [facility] Start: 05-09-2024 End: 05-09-2024 Patient encounter procedure 05/09/2024 1:20 PM EDT Office Visit [facility] CARDIOLOGY Part [address] [phone] Taiwo Guaman MD [address] [place] [address] [place] [address] 1 year [facility] CARDIOLOGY [facility] Comment on above: 1 year Start: 03-09-2024 Lipid panel Lipids [facility] Start: 01-06-2024 End: 01-06-2024 Patient encounter procedure [facility] OUTREACH PULM [facility] Comment on above: 1 Year Follow up Start: 10-23-2023 Prostate specific antigen measurement Prostate Specific Antigen (PSA) Screening or Monitoring [facility] Start: 09-30-2023 End: 09-30-2023 Patient encounter procedure [facility] UROLOGY [facility] Comment on above: 1 year f/u, PSA prio r Start: 09-22-2023 End: 09-22-2023 Patient encounter procedure 09/22/2023 1:15 PM EST Office Visit Paul Cunha MD [address] [place] [address] [place] [id number] Vin Velasquez, CLOTH PRINTER HELPER - TOOL LAPPER HAND [address] [facility], [place] [address] AWV Paul Cunha MD Comment on above: AWV Start: 09-16-2023 Annual Wellness Visi t (AWV) Annual Wellness Visit (AWV) [facility] Start: 09-16-2023 Annual Wellness Visi t (Medicare) Annual Wellness Visit (Medicare) [facility] Start: 09-16-2023 End: 09-16-2023 Patient encounter procedure 09/16/2023 11:30 AM EST Office Visit [facility] [address] [place] [address] Linette Chiang MD [address] [facility] [address] [place] [address] [facility] Start: 09-15-2023 Depression Monitoring Depression Mon itoring [facility] Start: 09-14-2023 End: 09-14-2023 Patient encounter procedure 09/14/2023 1:15 PM EST Office Visit [facility] ONCOLOGY SPECIALISTS Part of [address] [address] [place] [address] [place] [address] neutropenia, lymphoma [facility] Part of [facility] Comment on above: neutropenia, lymphom a Start: 09-10-2023 Prostate specific antigen measurement Prostate Specific Antigen (PSA) Screening or Monitoring [facility] Start: 09-03-2023 Subsequent hospital visit by physician 09/03/2023 Hospital Encounter [facility] OR [address] [place] [address] Katharine Reid MD [address] [place] [address] [address] [place] [address] [facility] Start: 08-21-2023 End: 08-21-2023 Anesthesia consultation 08/21/2023 11:59 PM EST Anesthesia Event [facility] OR [address] [place] [address] Cecilia Carroll, CLOTH PRINTER HELPER - VOICE OVER ARTIST [address] [address] [address] [place] [address] [facility] Start: 06-19-2023 Depression Monitoring Depression Mon itoring [facility] Start: 03-16-2023 End: 03-16-2023 Patient encounter procedure 03/16/2023 Office Visit Internal Medicine Vin Velasquez, CLOTH PRINTER HELPER - TOOL LAPPER HAND [address] [facility], [place] [address] Paul Cunha MD Start: 03-10-2023 Depression Monitoring Depression Mon itoaimee [facility] Start: 03-10-2023 Lipid panel Lipids [facility] Start: 02-18-2023 End: 02-18-2023 Patient encounter procedure 02/18/2023 Office Visit Cardiology Taiwo Guaman MD [address] [place] [address] [place] [address] [facility] CARDIOLOGY Part [facility] Start: 02-17-2023 Influenza vaccination Flu vaccine (# 1) [facility] Start: 02-16-2023 End: 02-16-2023 Patient encounter procedure 02/16/2023 Office Visit Oncology Narendra Tatum [place] [id number] [place] [address] [facility] Part [facility] Start: 01-14-2023 End: 01-14-2023 Patient encounter procedure 01/14/2023 Office Visit Cardiology Taiwo Guaman MD [address] [place] [address] [place] [address] [facility] CARDIOLOG[facility] Part [facility] Start: 12-25-2022 End: 12-25-2022 Patient encounter procedure 12/25/2022 Office Visit Pulmonology Brant Mo, CLOTH PRINTER HELPER - TOOL LAPPER HAND [address] [address] [facility] OUTREACH PULM [facility] Start: 11-10-2022 End: 11-10-2022 Patient encounter procedure 11/10/2022 Office Visit Oncology Narendra Tatum [place] [id number] [place] [address] [facility] Part [facility] Start: 09-29-2022 End: 03-13-2023 Patient encounter procedure 09/29/2022 Office [place] [address] [place] [address] [facility] Start: 09-15-2022 End: 09-15-2022 Patient encounter procedure 09/15/2022 Office Visit Internal Medicine Vin Velasquez APRN - TOOL LAPPER HAND [address] [facility], [facility] [place] [address] Paul Cunha MD Start: 09-10-2022 Annual Wellness Visi t (AWV) Annual Wellness Visit (AWV) [facility] Start: 09-05-2022 Lipid panel Lipids [facility] Start: 09-05-2022 Prostate specific antigen measurement Prostate Specific Antigen (PSA) Screening or Monitoring [facility] Start: 08-06-2022 COVID-19 Vaccine (2 - Moderna risk series) COVID-19 Vaccine (2 - Moderna risk series) [facility] Start: 07-09-2022 COVID-19 Vaccine (#1) COVID-19 Vacci ne (#1) [facility] Start: 04-09-2022 End: 04-09-2022 Patient encounter procedure 04/09/2022 Appointment Pulmonary Function Testing [facility] Start: 03-20-2022 Influenza vaccination Flu vaccine (# 1) [facility] Start: 03-10-2022 End: 03-10-2022 Patient encounter procedure 03/10/2022 Office Visit Internal Medicine Vin Velasquez, YANETH - TOOL LAPPER HAND [address] [facility], [place] [place] [address] Paul Cunha MD Start: 03-04-2022 Depression Monitoring Depression Mon itoring [facility] Start: 02-27-2022 [facility] Work Phone: Start: 02-27-2022 Potassium monitoring Potassium monit oring [facility] Work Phone: Start: 01-07-2022 End: 01-07-2022 Patient encounter procedure 01/07/2022 Office Visit Cardiology Taiwo Guaman MD [address] [place] [address] [place] [address] [facility] CARDIOLOGY [facility] Start: 09-11-2021 Creatinine measurement Creatinine mo nitoring [facility] [employer] Phone: Start: 09-11-2021 Lipid panel Lipid screen [facility] Phone: Start: 09-11-2021 Potassium monitoring Potassium monit oring [facility] [employer] Phone: Start: 09-11-2021 Prostate specific antigen measurement PSA counseling [facility] [employer] Phone: Start: 09-09-2021 End: 09-09-2021 Patient encounter procedure 09/09/2021 Office Visit Internal Medicine Vin Velasquez APRN - TOOL LAPPER HAND [address] [place] [address] Paul Cunha MD Start: 09-01-2021 Annual Wellness Visi t (AWV) Annual Wellness Visit (AWV) [facility] [employer] Phone: Start: 03-20-2021 End: 03-20-2021 Patient encounter procedure 03/20/2021 Appointment Pulmonary Function Testing [facility] P[facility] Start: 03-20-2021 Influenza vaccination Flu vaccine (# 1) [facility] [employer] Phone: Start: 03-04-2021 End: 03-04-2021 Office Visit 03/04/2021 Office Visit Internal Medicine Vin Velasquez APRN - CNP [address] [facility] [place] [address] TRANG Cunha [facility] Start: 01-01-2021 End: 01-01-2021 Office Visit 01/01/2021 Office Visit Cardiology Taiwo Guaman MD [address] [place] [address] [place] [address] [phone] [facility] CARDIOLOGY [facility] Start: 07-07-2020 Creatinine measurement Creatinine mo nitoring [place], [place] Start: 07-07-2020 Potassium monitoring Potassium monit [place], [place] Start: 05-08-2020 End: 05-08-2020 Office Visit 05/08/2020 Office Visit Internal Medicine Artis Cox MD [address] [place] [phone] Artis Cox MD Start: 04-26-2020 Annual Wellness Visi t (AWV) Annual Wellness Visit (AWV) [place] Start: 04-25-2020 Annual Wellness Visi t (AWV) Annual Wellness Visit (AWV) [facility] Phone: Start: 11-29-2019 End: 11-29-2019 Patient encounter procedure 11/29/2019 Office Visit Cardiology Taiwo Guaman MD [address] [place] [address] [phone] [facility] Start: 11-01-2019 End: 11-01-2019 Patient encounter procedure 11/01/2019 Office Visit Internal Medicine Artis Cox MD [address] [place] [phone] Artis Cox MD Start: 10-14-2019 Lipid panel Lipid screen [place], [place] Start: 10-14-2019 Lipid screen Lipid screen [facility] Phone: Start: 02-16-2019 Screening for malign ant neoplasm of colon FIT/FOBT: Average risk [facility] Start: 10-29-2017 Prostate specific antigen measurement PSA counseling [place], [place] Start: 05-19-2017 Creatinine monitoring Creatinine mon itoaimee [facility] [employer] Work Phone: Start: 05-19-2017 Potassium monitoring Potassium monit [facility] Phone: Start: 06-09-2016 Shingles Vaccine (3 of 3) Shingles Vaccine (3 of 3) [facility]: Start: 2008 Respiratory Syncytia l Virus (RSV) or age 60 yrs+ (1 - 1-dose 60+ series) Respiratory Syncytial Virus (RSV) or age 60 yrs+ (1 - 1-dose 60+ series) [facility] Start: 01-04-1993 Screening for malign ant neoplasm of colon [facility] Start: 01-04-1967 DTaP/Tdap/Td vaccine (1 - Tdap) DTaP/Tdap/Td vaccine (1 - Tdap) [place], [place] Start: 01-04-1966 Hepatitis C screening Hepatitis C [facility] Start: 1964 COVID-19 Vaccine (1 of 2) COVID-19 Vaccine (1 of 2) [facility] Phone: Start: 01-04-1959 DTaP/Tdap/Td vaccine (1 - Tdap) DTaP/Tdap/Td vaccine (1 - Tdap) [facility] Phone: Start: 1948 COVID-19 Vaccine (#1) COVID-19 Vacci ne (#1) [facility] Start: 1948 Hepatitis C screen Hepatitis C scree n [facility] Phone: Start: 1948 Hepatitis C screening Hepatitis C [place], [place] Start: 1948 Screening for malign ant neoplasm of colon [facility] Arthrp acetblr/prox fem prostc agrft/algrft HIP TOTAL ARTHROPLASTY ANTERIOR APPROACH Left hip pain [facility] End: 09-10-2022 Bone Marrow Bone Marrow Lab Routine Once for 1 Occurrences starting 09/10/2022 until 09/10/2022 [facility] [employer] Phone: Comment on above: Once for 1 Occurrenc es starting 09/10/2022 until 09/10/2022 EKG 12 Lead EKG 12 Lead ECG STAT 07/07/2019 5:27 PM [employer] Phone: Electrophoresis Prot ein, Serum Electrophoresis Protein, Serum Lab Routine Macrocytic anemia Lymphocytosis Neutropenia, unspecified type (HCC) 09/10/2022 12:47 PM EST [employer] Work Phone: End: 09-10-2022 Erythropoietin [employer] Phone: Comment on above: 1 Occurrences starti ng 09/10/2022 until 09/10/2022 End: 09-10-2022 Flow Cytometry Leukemia/Lymphoma, Blood [employer] Phone: Comment on above: 1 Occurrences starti ng 09/10/2022 until 09/10/2022 End: 09-10-2022 Flow Cytometry Leukemia/Lymphoma, Bone Marrow [employer] Phone: Comment on above: Once for 1 Occurrenc es starting 09/10/2022 until 09/10/2022 End: 09-10-2022 Hemoglobin A1c/Hemoglobin.total in Blood [employer] Work Phone: Comment on above: 1 Occurrences starti ng 09/10/2022 until 09/10/2022 End: 09-10-2022 Path Review, Smear [employer] Phone: Comment on above: 1 Occurrences starti ng 09/10/2022 until 09/10/2022 Immunizations Immunization Date Immunization Notes Care Provider Sherrell chen 07-09-2022 COVID-19, MODERNA Bivalent BOOSTER, (age 12y+), IM, 50 mcg/0.5 mL Vin Velasquez CLOTH PRINTER HELPER - TOOL LAPPER HAND Work Phone: [employer] Work Phone: 03-25-2022 Influenza, FLUAD, (a ge 65 y+), Adjuvanted, 0.5mL Vin Velasquez CLOTH PRINTER HELPER - TOOL LAPPER HAND Work Phone: [employer] Work Phone: 12-04-2021 tetanus toxoid, redu maureen diphtheria toxoid, and acellular pertussis vaccine, adsorbed [facility] CLOTH PRINTER HELPER - TOOL LAPPER HAND Work Phone: [facility] Work Phone: 05-13-2021 COVID-19, MODERNA Booster BLUE border, (age 18y+), IM, 50mcg/0.25mL [facility] CLOTH PRINTER HELPER - TOOL LAPPER HAND Work Phone: [facility] Work Phone: 03-04-2021 Influenza, Quadv, adjuvanted, 65 yrs +, IM, PF (Fluad) [facility] Room [facility] Work Phone: 03-19-2020 influenza virus vacc ine, unspecified formulation [facility] Work Phone: 03-19-2020 influenza, injectabl e, quadrivalent, preservative free [facility] Work Phone: 03-19-2020 Influenza, Quadv, adjuvanted, 65 yrs +, IM, PF (Fluad) [facility] 03-19-2020 zoster vaccine recombinant [facility] Work Phone: 01-17-2020 zoster vaccine recombinant [facility] Work Phone: 04-12-2019 influenza virus vacc ine, unspecified formulation Irvin Felix MD Work Phone: [facility] Phone: 04-12-2019 Seasonal trivalent influenza vaccine, adjuvanted, preservative free [facility] Work Phone: 04-20-2018 influenza, high dose seasonal, preservative-free Irvin Felix MD Work Phone: [facility] [employer] Phone: 07-14-2017 hepatitis A vaccine, adult dosage [facility] 03-05-2017 influenza virus vacc ine, unspecified formulation Irvin Felix MD Work Phone: [facility] Work Phone: 03-05-2017 Seasonal trivalent influenza vaccine, adjuvanted, preservative free [facility] Work Phone: 05-28-2016 pneumococcal polysaccharide vaccine, 23 valent Irvin Felix MD Work Phone: [facility] Work Phone: 05-11-2016 pneumococcal polysaccharide vaccine, 23 valent [facility] Work Phone: 04-14-2016 zoster vaccine recombinant Irvin Felix MD Work Phone: [facility] 03-21-2016 Influenza Vaccine, unspecified formulation Irvin Felix MD Work Phone: [facility] 03-21-2016 influenza, high dose seasonal, preservative-free [facility] Work Phone: 05-10-2015 pneumococcal conjuga te vaccine, 13 valent Irvin Felix MD Work Phone: [facility] 04-23-2015 Influenza Vaccine, unspecified formulation Irvin Felix MD Work Phone: [facility] 04-14-2014 zoster vaccine, live Irvin quinones MD Work Phone: [facility] Work Phone: 03-15-2014 influenza virus vacc ine, unspecified formulation Irvin Felix MD Work Phone: [facility] Work Phone: 04-18-2013 influenza virus vacc ine, unspecified formulation Irvin Felix MD Work Phone: [facility] Work Phone: 07-19-2009 novel influenza-H1N1 -09, preservative-free, injectable [facility] Work Phone: 05-26-2005 influenza virus vacc ine, unspecified formulation Irvin Felix MD Work Phone: [facility] Work Phone: Payers Date Payer Category Payer Unknown [email or web address] INSURANCE [id number] 2021-Present [address] [address] [place] [address] [id number] 2016 Unknown [id number] 2016 Unknown [employer] MEDICARE SUPP xxxxxxxxxx 2016-Present [phone] [address] [place] [address] xxxxxxxxxx [id number] 2014 Medicare MEDICARE MEDICAR E PART A AND B xxxxxxxxxxx 2014-Present [phone] [place] [address] xxxxxxxxxxx [id number] 2012 Medicare [id number] 2012 Medicare MEDICARE MEDICAR E PART B [id number] 2012-[place] [address] Medicare [id number] 1948 Unknown [id number] 1948 Unknown [id number] 1948 Unknown [id number] 1948 Unknown [id number] 9 1948 Unknown [id number] 1948 Unknown [id number] 1948 Unknown [id number] 1948 Unknown [id number] 1948 Unknown [id number] 1948 Unknown [id number] 1948 Unknown [id number] 1948 Unknown [id number] 1948 Unknown [id number] Social History Date Type Detail Facility Start: 08-31-2020 End: 03-10-2022 Tobacco smoking status OHIS Never smoker [facility] Start: 08-31-2020 End: 03-10-2022 Tobacco use and exposure Never used [employer] Phone: Start: 08-31-2020 End: 08-31-2023 Alcohol intake Current drinker of alcohol (finding) [employer] Phone: Start: 11-01-2019 End: 09-15-2022 History SDOH Financial 5 [employer] Start: 11-01-2019 End: 09-15-2022 History SDOH Food Worry 1 [facility] [place] Start: 11-01-2019 End: 09-15-2022 History SDOH Transport Med 2 [facility] [place] Start: 04-24-2014 Alcohol Comment weekly [employer] Phone: Start: 1950 Sex Assigned At Not on file [employer] Phone: Start: 03-04-2021 End: 09-15-2022 History SDOH Physical Activity MPS 3 [employer] Phone: Start: 09-09-2021 End: 09-15-2022 History SDOH Alcohol Frequency 4 [employer] Work Phone: Start: 09-09-2021 History SDOH Physical Activity DPW 7 [employer] Work Phone: Start: 09-10-2022 Alcohol Comment one drink every evening [employer] Work Phone: Start: 08-31-2022 End: 09-10-2022 Exposure to SARS-CoV-2 (event) Not sure [employer] Work Phone: Start: 09-15-2022 History SDOH Physical Activity DPW 0 [employer] Work Phone: Start: 09-15-2022 End: 05-29-2023 History of Social function [employer] Start: 09-15-2022 End: 05-29-2023 Humiliation, Afraid, Rape, and Kick questionnaire [HARK] [employer] Within the last year , have you been afraid of your partner or ex-partner? No [employer] Do you belong to any clubs or organizations such as anabaptism groups, unions, fraternal or athletic groups, or school groups? Yes [employer] Are you now , , , , never or living with a partner? [employer] How often to you hav e a drink containing alcohol? 2-3 time sa week [employer] How many standard dr inks containing alcohol do you have on a typical day? 1 or 2 [employer] How often do you hav e 6 or more drinks on 1 occasion? Never [employer] How hard is it for y ou to pay for the very basics like food, housing, medical care, and heating Not hard at all [employer] Do you feel stress - tense, restless, nervous, or anxious, or unable to sleep at night because your mind is troubled all the time - these days [OSQ] Only a little [employer] (I/We) worried wheth er (my/our) food would run out before (I/we) got money to buy more. Never true [employer] Tobacco smoking stat [facility] Tobacco smoking consumption unknown [facility] Start: 1950 Sex Assigned At Male [facility] Start: 06-19-2023 Gender identity Identifies as male gender (finding) [facility] Start: 06-19-2023 Sexual orientation Heterosexual (finding) [facility] Clinical Notes 02-11-2022 to 09-02-2023 [place], [facility] - 09/02/2023 1:00 PM [facility] Work - 02/11/2022 2:00 PM EDT Note Date & Type Note Facility 09-02-2023 History of Present illness Narrative History: Pt was referred to ENT because of right middle ear fluid, onset about 3 months ago. Pt's right ear hearing also seems reduced. It feels like he is in a drum. Pt also reported periodic tinnitus oin the right ear. History is positive for excessive noise exposure. Otoscopic Exam: Ear canal clear and TM intact [facility] Pure Tone Audiometry Right Ear: Mild conductive hearing loss at 1K Hz. Moderate to profound mixed hearing loss above 2K Hz Left Ear: Mild sloping to severe sensorineural hearing loss above 3K Hz Speech Audiometry Right SRT = 10 dB and word discrimination score at 70 dBHL (masked) = 96% Left SRT = 20 dB and word discrimination score at 60 dBHL (masked) = 100% Tympanometry Right Ear: Type B tympanogram Left Ear: Type A tympanogram documented in this encounter [facility] 02-11-2022 History of Present illness Narrative Explained policies and procedures of an echocardiogram/Doppler study. documented in this encounter [employer] Phone: Evaluation note Diagnosis Paroxysmal atrial fibrillation (HCC) Atrial fibrillation Essential hypertension Unspecified essential hypertension documented in this encounter [employer] Phone: evaluation note* Diagnosis Essential hypertension, benign documented in this encounter [employer] Phone: evaluation note* Diagnosis Atrial fibrillation, unspecified type (HCC) documented in this encounter [employer] Phone: evaluation note* Diagnosis Atrial fibrillation, unspecified type (HCC) Essential hypertension, benign documented in this encounter [employer] Phone: evaluation note* Diagnosis Epistaxis- Primary Essential hypertension Unspecified essential hypertension documented in this encounter [employer] Phone: evaluation note* Diagnosis Paroxysmal atrial fibrillation (HCC) Atrial fibrillation Essential hypertension Unspecified essential hypertension documented in this encounter [employer] Phone: evaluation note* Diagnosis Essential hypertension, benign Atrial fibrillation, unspecified type (HCC) Screening for prostate cancer Special screening for malignant neoplasm of prostate Abnormal finding of blood chemistry, unspecified documented in this encounter [employer] Phone: evaluation note* Diagnosis Atrial fibrillation, unspecified type (HCC) documented in this encounter [employer] Phone: evaluation note* Diagnosis Macrocytic anemia Unspecified deficiency anemia Lymphocytosis Lymphocytosis (symptomatic) Neutropenia, unspecified type (HCC) Essential hypertension, benign Atrial fibrillation, unspecified type (HCC) Screening for prostate cancer Special screening for malignant neoplasm of prostate Abnormal finding of blood chemistry, unspecified documented in this encounter [employer] Phone: evaluation note* Diagnosis Other specified type of non-Hodgkin lymphoma, unspecified body region (HCC) Neutropenia, unspecified type (HCC) Prostate cancer (HCC) Malignant neoplasm of prostate documented in this encounter [facility] [employer] Phone: evaluation note* Diagnosis Neutropenia, unspecified type (HCC) documented in this encounter [facility] [employer] note* Diagnosis Prostate cancer (HCC) Malignant neoplasm of prostate Macrocytic anemia Unspecified deficiency anemia Adult T-cell leukemia/lymphoma, 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, unspecified body region, unspecified mature NK/t-cell lymphoma type (HCC) Paroxysmal atrial fibrillation (HCC) Atrial fibrillation Essential hypertension, benign Neutropenia, unspecified type (HCC) Abnormal finding of blood chemistry, unspecified documented in this encounter [facility] [place] [facility]* Diagnosis 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 * Nosebleeds (Greek) * Hypertension: General Info (Greek) [facility]: Assessments Diagnosis Paroxysmal atrial fibrillation (HCC) Atrial fibrillation Encounter for screening for malignant neoplasm of prostate Special screening for malignant neoplasm of prostate Essential hypertension, benign Abnormal finding of blood chemistry, unspecified Diagnosis PAF (paroxysmal atrial fibrillation) (HCC) Atrial fibrillation Essential hypertension Unspecified essential hypertension Advance Directives No Advanced Directives Records FoundDocuments on File Type Date Recorded 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 Wash Tub 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 Expl 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 ACP-Advance Directive ACP-Power of Fishery Biologist 04/20/2018 10:17 AM HEALTH CARE POA ACP-Power of Fishery Biologist 04/20/2018 10:18 AM DURABLE POA Documents on File Type Date Recorded Patient Wash Tub 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 Expl anation Advance Directives and Living Will Power of Fishery Biologist 04/20/2018 10:17 AM [facility] CARE POA Power of Fishery Biologist 04/20/2018 10:18 AM DURA BLE POA Documents on File Type Date Recorded Patient Wash Tub 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 Expl anation ACP-Advance Directive ACP-Power of Fishery Biologist 04/20/2018 10:17 AM HEALTH CARE POA ACP-Power of Fishery Biologist 04/20/2018 10:18 AM DURABLE POA Documents on File Type Date Recorded Patient Wash Tub 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 Expl anation Advance Directives and Living Will Power of Fishery Biologist 04/20/2018 10:17 AM HEAL TH CARE POA Power of Fishery Biologist 04/20/2018 10:18 AM DURA BLE POA Documents on File Type Date Recorded Patient Wash Tub 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 Expl anation ACP-Power of Fishery Biologist 04/20/2018 10:17 AM HEALTH CARE POA ACP-Power of Fishery Biologist 04/20/2018 10:18 AM DURABLE POA Documents on File Type Date Recorded Patient Wash Tub 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 Expl anation ACP-Power of Fishery Biologist 04/20/2018 10:17 AM HEALTH CARE POA ACP-Power of Fishery Biologist 04/20/2018 10:18 AM DURABLE POA Documents on File Type Date Recorded Patient Wash Tub 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 Expl anation ACP-Power of Fishery Biologist 04/20/2018 10:18 AM DURABLE POA ACP-Power of Fishery Biologist 04/20/2018 10:17 AM HEALTH CARE POA Reason for Referral Status Reason Specialty Diagnoses / Procedures Referre d By Contact Referred To Contact Closed Cardiology Diagnoses PAF (paroxysmal atrial fibrillation) (HCC) Essential hypertension Procedures Echo 2D w doppler w color complete Taiwo Guaman MD [address] [place] [phone] Status Reason Specialty Diagnoses / Procedures Referred By Contact Referred To Contact Closed Cardiology / Echocardiography Diagnoses Paroxysmal atrial fibrillation (HCC) Essential hypertension Procedures Echo 2D w doppler w color complete Taiwo Guaman MD [address] [place] [phone] [facility] Echo [address] [place] [id number] Status Reason Specialty Diagnoses / Procedures Referre d By Contact Referred To Contact Closed Diagnoses Atrial fibrillation, unspecified type (HCC) Essential hypertension, benign Procedures Full PFT Study Without Bronchdilator Vin Velasquez, CLOTH PRINTER HELPER - TOOL LAPPER HAND [address] [facility], [place] [address] Specialty Diagnoses / Procedures Referred By Contac t Referred To Contact Cardiology Diagnoses Paroxysmal atrial fibrillation (HCC) Essential hypertension I48.0 (ICD-10-CM) - Paroxysmal atrial fibrillation (HCC) Procedures Echo 2D w doppler w color complete AR ECHO HEART XTHORACIC,COMPLETE W DOPPLER Taiwo Guaman MD [address] [place] [address] [place] [address] Referral ID Status Reason Start Date Expiration Date Visits Re quested Visits Authorized [id number] Closed 01/07/2022 01/07/2023 1 1 History of Present Illness * Krista Street - 01/02/2020 11:30 AM EDT Explained policies and procedures of an echocardiogram/doppler study. documented in this encounter Summary Purpose Family History No Family History Records FoundNo Family History Records FoundNo Family History Records Found Additional Source Comments Reason for Visit (unrecogniz ed section and content) Status Reason Specialty Diagnoses / Procedures Referre d By Contact Referred To Contact Closed Cardiology Diagnoses PAF (paroxysmal atrial fibrillation) (HCC) Essential hypertension Procedures Echo 2D w doppler w color complete Taiwo Guaman MD [address] [place] [address] [place] [address] Status Reason Specialty Diagnoses / Procedures Referred By Contact Referred To Contact Closed Cardiology / Echocardiography Diagnoses Paroxysmal atrial fibrillation (HCC) Essential hypertension Procedures Echo 2D w doppler w color complete Taiwo Guaman MD [address] [place] [address] [place] [address] 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 Specialty Diagnoses / Procedures Referred By Contac t Referred To Contact Cardiology Diagnoses Paroxysmal atrial fibrillation (HCC) Essential hypertension I48.0 (ICD-10-CM) - Paroxysmal atrial fibrillation (HCC) Procedures Echo 2D w doppler w color complete AR ECHO HEART XTHORACIC,COMPLETE W DOPPLER Taiwo Guaman MD [address] [place] [address] [place] [address] Referral ID Status Reason Start Date Expiration Date Visits Re quested Visits Authorized [id number] Closed 01/07/2022 01/07/2023 1 1 Care Teams (unrecognized sec tion and content) 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 Start Date End Date Vin Velasquez APRN - TOOL LAPPER HAND PCP - General Nurse Practitioner Family 08/31/20 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 Start Date End Date Vin Velasquez APRN - TOOL LAPPER HAND PCP - General Nurse Practitioner Family 08/31/20 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 Start Date End Date Vin Velasquez APRN - TOOL LAPPER HAND PCP - General Nurse Practitioner Family 08/31/20 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 Start Date End Date Vin Velasquez APRN - TOOL LAPPER HAND PCP - General Nurse Practitioner Family 08/31/20 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 Start Date End Date Vin Velasquez APRN - TOOL LAPPER HAND PCP - General Nurse Practitioner Family 08/31/20 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 Start Date End Date Vin Velasquez APRN - TOOL LAPPER HAND PCP - General Nurse Practitioner Family 08/31/20 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 Start Date End Date Vin Velasquez APRN - TOOL LAPPER HAND PCP - General Nurse Practitioner Family 08/31/20 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 Start Date End Date Vin Velasquez APRN - TOOL LAPPER HAND PCP - General Nurse Practitioner Family 08/31/20 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 Start Date End Date Paul Cunha MD [address] [place], [place] [id number] PCP - General Internal Medicine 06/18/23 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 Start Date End Date Paul Cunha MD [address] [place], [place] [phone] PCP - General Internal Medicine 06/18/23 (unrecognized sect ion and content) No Status Records FoundNo Status Records FoundNo Status Records Found INFORMATION SOURCE (unrecogn ized section and content) DATE CREATED AUTHOR 09/01/2023 [facility] DATE CREATED AUTHOR AUTHOR'S ORGANIZ ATION 09/04/2023 [facility] DATE CREATED AUTHOR AUTHOR'S ORGANIZ ATION 09/24/2023 [facility] FOR RECORDS PERTAINING TO PATIENTS WHO ARE OR HAVE BEEN ENROLLED IN A CHEMICAL DEPENDENCY/SUBSTANCEABUSE PROGRAM, SOME INFORMATION MAY BE OMITTED. This clinical summary was aggregated from multiple sources. Caution should be exercised in using it in the provision of clinical care. This summary normalizes information from multiple sources, and as a consequence, information in this document may materially change the coding, format and clinical context of patient data. In addition, data may be omitted in some cases. CLINICAL DECISIONS SHOULD BE BASED ON THE PRIMARY CLINICAL RECORDS. [employer] provides no warranty or guarantee of the accuracy or completeness of information in this document.
[2023-09-29] MEDS: LACTATED RINGER'S SOLUTION 1,000 ML 50 ML IV (07:54)
[2023-09-29] MEDS: SCOPOLAMINE 1 MG/3 DAYS TRANSDERM PATCH 1 PATCH TD (08:08)
== END 2023-09-29 09:52 | disposition home or self-care (01) ==
PROVIDERS: Visit Provider Otolaryngology
PROC: (CPT 69436; principal; 2023-09-29 08:10)
DX: H69.81 Other specified disorders of Eustachian tube, right ear (principal); Z79.01 Long term (current) use of anticoagulants; J44.9 Chronic obstructive pulmonary disease, unspecified; H65.91 Unspecified nonsuppurative otitis media, right ear; C91.50 Adult T-cell lymphoma/leukemia (HTLV-1-associated) not having achieved remission; E78.5 Hyperlipidemia, unspecified; I10 Essential (primary) hypertension; C61 Malignant neoplasm of prostate; I48.0 Paroxysmal atrial fibrillation; H90.A31 Mixed conductive and sensorineural hearing loss, unilateral, right ear with restricted hearing on the contralateral side
CPT/HCPCS: 69436; 36415; J1094; J2704; J2930